=== PATIENT | male | born 1945 | race Caucasian/White ===

== ENCOUNTER 2023-06-19 15:50 | Emergency (ER) | payer MEDICARE, OTHER, SELFPAY ==
[2023-06-19 15:56] VITALS: BP 196/108
[2023-06-19 16:26] LABS: % Basophils 0.9 % (0-2); % Eosinophils 2.1 % (0-6); % Immature Granulocytes 0.4 % (0-0.5); % Lymphocytes 14.4 % (20.5-51.1); % Neutrophils 72.2 % (42.2-75.2); Absolute Basophils 0.1 10^3/uL (0-0.2); Absolute Eosinophils 0.2 10^3/uL (0-0.7); Absolute Lymphocytes 1.5 10^3/uL (1.2-3.4); Absolute Neutrophils 7.3 10^3/uL (1.4-6.5); Hematocrit 45.7 % (39.0-52.0); Hemoglobin 16.3 g/dL (13.0-18.0); Mean Corp Hgb Conc. 35.7 g/dL (33.0-37.0); Mean Corpuscular Hgb 33.7 pg (27.0-31.0); Mean Corpuscular Volume 94.4 fL (80.0-94.0); Nucleated Red Blood Cells % 0 % (-); Red Blood Cell Count 4.84 10^6/uL (4.70-6.10); Red Cell Dist. Width 13.5 % (11.5-14.5); White Blood Cell Count 10.1 10^3/uL (4.8-10.8)
[2023-06-19 16:46] LABS: Urine Albumin Trace (Neg - Trace); Urine Bilirubin Negative (Negative); Urine Character Clear (Clear); Urine Color Yellow; Urine Glucose Negative (Negative); Urine Ketone Negative (Negative); Urine Leukocyte Trace (Negative); Urine Nitrite Negative (Negative); Urine Occult Blood 4+ (Negative); Urine Urobilinogen Negative (Neg - 1+)
[2023-06-19 16:49] LABS: ALT (SGPT) 23 U/L (0-50); AST (SGOT) 32 U/L (17-59); Albumin 4.3 g/dl (3.5-5.0); Alkaline Phosphatase 136 U/L (38-126); Blood Urea Nitrogen 19 mg/dl (9-20); Calcium 9.1 mg/dl (8.4-10.2); Carbon Dioxide 26 mmol/L (22-30); Chloride 106 mmol/L (98-107); Glucose 111 mg/dl (70-99); Potassium 4.4 mmol/L (3.5-5.1); Sodium 138 mmol/L (135-145); Total Bilirubin 1.8 mg/dl (0.2-1.3); Total Protein 7.5 g/dl (6.3-8.2); eGFR > 60.00
[2023-06-19 16:57] LABS: Urine Bacteria Moderate (Negative); Urine Red Blood Cell >100 /HPF (0-2); Urine Squamous Cell 0-2 /LPF (Few); Urine White Cell 0-2 /HPF (0-5)
[2023-06-19 17:08] LABS: Mean Platelet Volume 10.6 fL (7.4-10.4); Platelet Count 281 10^3/uL (130-400)
--- NOTE | 2023-06-19 18:23 | ED.GENMED ---
History of Present Illness
General
Chief Complaint: Flank Pain
Source: patient
Exam Limitations: none
Time Seen by Provider: 06/19/23 18:02
Travel History
Have you had any contact with someone who has COVID-19?: No
Do you have any symptoms of coronavirus? Fever > 100 degrees, chills, cough, shortness of breath, sore throat, loss of taste or smell, muscle aches, or headache?: No
History of Present Illness
History of Present Illness:
This is a 77 year old male that comes in with c/o left flank pain. States that for a week he has had blood in his urine. States that he felt it was a kidney stone and that it would just pass. States that there was only a little discomfort. Today
about 3 hours ago he went from no discomfort to extreme discomfort with nausea. States that the pain is left sided and came from around the back to the side. Denies any fever, chills, chest pain, SOB, vomiting, diarrhea, headache, dizziness, urinary
burning.
Past History
Past History
ED Past Medical History: Cancer (T-cell Lymphoma), HTN, Hypercholesterolemia, Seizures, Other (bph, Renal calculus, ) and Other (Osteoarthritis and cervical disc disease)
ED Past Surgical History: Orthopedic (Cervical discectomy with fusion C4-5, C5-6, C6-7,, Right total knee replacement, Carpal tunnel), Urological (Prostate surgery) and Other (Splenectomy)
Social History
Tobacco: Former smoker
Alcohol: Daily (Beer 1)
Drug: None
Personal:
Living: with family
Family History
Family History: Negative Diabetes, Hypertension, Early CAD, Asthma or Cancer
Review of Systems
Review of Systems
All Other Systems: ROS reviewed and negative except as documented in HPI and ROS
Constitutional: Reports no symptoms; Denies fever or chills
EENT: Reports no symptoms
Respiratory: Reports no symptoms; Denies cough or trouble breathing
Cardiac: Reports no symptoms; Denies chest pain
ABD/GI: Reports nausea; Denies abdominal pain, vomiting or diarrhea
: Reports flank pain (Left sided)
Musculoskeletal: Reports no symptoms
Skin: Reports no symptoms
Neurological: Reports no symptoms; Denies dizzy or headache
Psychiatric: Reports no symptoms
Phy Exam
General Physical Exam
General Presentation: mild distress
General age: appears stated age
General Skin: warm and dry
General Habitus: elderly
General Mental: alert
General Hydration: appears well hydrated
ENT Exam
ENT Exam: TM's normal, pharynx normal and neck supple
Eye Exam
Eye Exam: EOMI
Cardiovascular Exam
Cardiovascular Exam: regular rate/rhythm and normal peripheral pulses
Pulmonary Exam
Pulmonary Exam: lungs clear, no respiratory distress, no rales, chest non tender, no crackles, no rhonchi, no wheezing and no cough
Gastrointestinal Exam
Gastrointestinal Exam: normal bowel sounds, soft, no organomegaly, no pulsatile mass, non distended, cva tenderness and tender (Very slight left sided tenderness with palpation)
Musculoskeletal Exam
Musculoskeletal Exam: full ROM
Skin Exam
Skin Exam: normal color, warm/dry, no rash and no petechia
Psychiatric Exam
Psychiatric Exam: normal mood/affect
Course
Orders/Labs/Results
Orders:
Orders
06/19/23 16:13
Complete Blood Count/With Diff Urgent
Comprehensive Metabolic Panel Urgent
06/19/23 16:20
Urinalysis Reflex To Culture Urgent
Date Specimen was Collected: 06/19/23
Time Specimen was Collected: 16:05
Urine Microscopic Reflex Cult Urgent
Urine Culture Urgent
EVELYN Source: U
Specimen Description:
Date Specimen was Collected: 06/19/23
Time Specimen was Collected: 16:05
06/19/23 18:21
CT Abd/pel Without Iv Or Oral Urgent
Comment:
Reason For Exam: Left flank pain
0.9% Sodium Chloride 1000 ml [Nss] 1,000 ml IV BOLUS
HYDROmorphone [Dilaudid] 1 mg IV NOW STA
Ondansetron Injectable [Zofran] 4 mg IV NOW STA
Abnormal Lab Results
06/19/23 06/19/23
16:13 16:20
MCV 94.4 H fL
(80.0-94.0)
MCH 33.7 H pg
(27.0-31.0)
MPV 10.6 H fL
(7.4-10.4)
Absolute Neuts (auto) 7.3 H 10^3/uL
(1.4-6.5)
Absolute Monos (auto) 1.0 H 10^3/uL
(0.1-0.6)
Lymphocytes % 14.4 L %
(20.5-51.1)
Monocytes % 10.0 H %
(1.7-9.3)
Glucose 111 H mg/dl
(70-99)
Total Bilirubin 1.8 H mg/dl
(0.2-1.3)
Alkaline Phosphatase 136 H U/L
(38-126)
Ur Occult Blood Reflex 4+ A
(Negative)
Leukocyte Esterase Rfl Trace A
(Negative)
Urine RBC >100 A /HPF
(0-2)
Urine Bacteria (Reflex) Moderate A
(Negative)
06/19/23 16:13
06/19/23 16:13
Glucose nonfasting. Total adrienne slightly elevated. Alk phos mildly elevated. Urine negative for infection.
Vital Signs
Initial and Last Documented VS:
Initial Vital Signs
Temp Pulse Resp BP Pulse Ox
98 F 72 18 196/108 99
06/19/23 15:56 06/19/23 15:56 06/19/23 15:56 06/19/23 15:56 06/19/23 15:56
Last Documented Vital Signs
Temp Pulse Resp BP Pulse Ox
98 F 72 18 196/108 99
06/19/23 15:56 06/19/23 15:56 06/19/23 15:56 06/19/23 15:56 06/19/23 15:56
MDM/Problems Addressed
Differential Diagnosis Includes:
Renal calculus
MDM/Problems Addressed:
This is a 77 year old male that comes in with c/o left flank. States that he started with blood in his urine a week ago. Then today the pain became extreme and he was nauseated.
Will get labs, CT scan and medicate for pain and give IV fluids.
Back into see patient. Patient states that he is feeling better. Explained that he has a 3mm stone in the proximal ureter. Will discharge patient home with Prescriptions sent to his pharmacy. Will have patient strain his urine and follow up with the
urologist. Patient to return with fever or any other concerns.
Chronic conditions affecting care: Other (Renal calculus)
Acute Exacerbation and/or Progression of Chronic Illness: Other (Renal calculus)
*Radiology
Radiology exam reviewed: radiology read reviewed (Obstructive uropathy secondary to a 3mm calculus in the proximal left ureter causing moderate left hydroureteronephrosis. Chronic findings, as above. )
*Pulse Oximetry
Patient hypoxic: no
*EKG
Interpreted by ED Provider?: NA
Rate: EKG- N/A
*Tamale Machine Feeder Interpretation
Rate: Tamale Machine Feeder- N/A
*Critical Care Note
Total Time (30-74mins, 75-104mins- exclusive of procedures): Not Applicable
ED Attending Note
-
Portions of this chart may have been created with voice recognition software.� Occasional wrong word or��sound alike� substitutions may have occurred due to the inherent limitations of voice recognition software.
Discharge Plan
Departure
Patient Disposition: Home (Routine Discharge)
Date of Disposition: 01/30/24
Time of Disposition: 20:41
Patient with high blood pressure during this ER visit?: Yes
Condition: Good
Covid-19: Not Applicable
Discharge Problem:
Renal calculus, left
Instructions: Renal Colic (DC), How to Strain Your Urine, BLOOD PRESSURE, Narcotic Pain Medication
Prescriptions:
New
ondansetron 4 mg tablet,disintegrating
4 mg PO Q8H PRN (Reason: nausea and vomiting) Qty: 10 0RF
oxycodone-acetaminophen [Percocet] 5-325 mg tablet
1 tab PO Q4HPRN PRN (Reason: pain) Qty: 10 0RF
tamsulosin [Flomax] 0.4 mg capsule
0.4 mg PO HS Qty: 7 0RF
No Action
tamsulosin 0.4 MG capsule
0.8 mg PO DAILY Qty: 0 0RF
aspirin 81 MG tablet,delayed release (DR/EC)
81 mg PO DAILY Qty: 0 0RF
Patient Comments:
holding pre-op 06/2014
divalproex [Depakote] 500 MG tablet,delayed release (DR/EC)
500 mg PO QPM
Lipitor:
1 tab PO QPM
Patient Comments:
pt unsure of dose
cyclobenzaprine 10 MG tablet
10 mg PO TIDPRN PRN (Reason: pain) Qty: 20 0RF
ciprofloxacin HCl 500 MG tablet
500 mg PO BID Qty: 6 0RF
Referrals:
Kingsley Bobo MD [Active] - Follow up in 5-7 days
Thad Mehta DO [Family Provider] -
Activity Restrictions/Additional Instructions:
As discussed, you have a 3mm stone in the left ureter. Please increase your water intake to 8-8oz glasses daily. Please strain your urine. You have had three prescriptions sent to your Pharmacy. The first is for Flomax that will help relax the
smooth muscle to you can pass the stone. The second is Zofran that will help with any nausea/vomiting. The last is a narcotic pain medication for sever pain. This will make you tired. Please no alcohol or driving when taking. Please eat before
taking as this can also cause nausea. If you pain is not severe you may use Tylenol 1000mg every 6 hours for pain and alternate with Ibuprofen 600mg every 6 hours with food. Follow up with the Urologist in the next 5-7 days. IF YOU HAVE ANY FEVER,
PAIN THAT IS NOT CONTROLLED OR YOU HAVE ANY OTHER CONCERNS PLEASE RETURN TO THE EMREGENCY ROOM.
Interventions
Interventions:
*Risk Screen - Suicide Last Done: 06/19/23 15:56
*General Assessment Last Done: 06/19/23 15:56
*Neglect/Abuse Screening Last Done: 06/19/23 15:56
MB-Wxgmit-Saqlzagcto Assessment Last Done: 06/19/23 18:52
ED-Male Genitourinary Assessment Last Done: 06/19/23 18:52
[2023-06-19] MEDS: NSS 1000 IV (18:36)
[2023-06-19] MEDS: ZOFRAN 4 MG IV (18:36)
[2023-06-19] MEDS: DILAUDID 1 MG IV (18:36)
[2023-06-19 20:45] VITALS: BP 166/87
[2023-06-19] MEDS: PERCOCET 5/325 1 TABLET PO (20:56)
[2023-06-19] MEDS: FLOMAX 0.400000000000000022 MG PO (20:56)
== END 2023-06-19 21:15 | disposition home or self-care (01) ==
LOC: EMR 15:50
PROVIDERS: Emergency Medicine; EMERGENCY PHYSICIAN Emergency Medicine; FAMILY PHYSICIAN Family Medicine
DX: N13.2 Hydronephrosis with renal and ureteral calculous obstruction (principal); R11.0 Nausea; I10 Essential (primary) hypertension; E78.00 Pure hypercholesterolemia, unspecified; M19.90 Unspecified osteoarthritis, unspecified site; M50.90 Cervical disc disorder, unspecified, unspecified cervical region; R56.9 Unspecified convulsions; Z79.82 Long term (current) use of aspirin; Z96.651 Presence of right artificial knee joint; Z87.891 Personal history of nicotine dependence; Z87.442 Personal history of urinary calculi; Z85.72 Personal history of non-Hodgkin lymphomas; M43.22 Fusion of spine, cervical region; Z90.81 Acquired absence of spleen
CPT/HCPCS: 99284; 96374; 96375; 96361; 74176; 80053; 81003; 81015; 85025; 87086

== ENCOUNTER → 2023-07-26 15:48 | Outpatient (REF) | payer MEDICARE, OTHER, SELFPAY | LOC: HWRAD 15:48 | PROVIDERS: ATTENDING PHYSICIAN Specialist; FAMILY PHYSICIAN Family Medicine | DX: N20.1 Calculus of ureter (principal) | CPT/HCPCS: 74176 ==

== ENCOUNTER 2023-08-03 06:18 | Day surgery (SDC) | payer MEDICARE, SELFPAY ==
[2023-07-31 13:11] VITALS: BMI 33.9
[2023-08-03] VITALS (8 sets, daily range): BP systolic 111–154; BP diastolic 63–90; BMI 33.9
[2023-08-03] MEDS: NORMOSOL-R 1000 IV (09:52)
[2023-08-03] MEDS: Pyridium 200 MG PO (13:36)
[2023-08-08 19:16] LABS: Stone Analysis Mass 646 mg
[2023-08-09 10:37] LABS: Stone Analysis Mass 5 mg
== END 2023-08-03 14:41 | disposition home or self-care (01) ==
LOC: SDS 06:18
PROVIDERS: ATTENDING PHYSICIAN Specialist
DX: N20.1 Calculus of ureter (principal); Q62.5 Duplication of ureter; N42.0 Calculus of prostate
CPT/HCPCS: 52356; 74018; 76000; 82365; C1894; C2617

== ENCOUNTER → 2024-09-29 15:15 | Outpatient (REF) | payer MEDICARE, OTHER, SELFPAY | LOC: RAD 15:15 | PROVIDERS: ATTENDING PHYSICIAN Family Medicine | DX: R17 Unspecified jaundice (principal); R97.20 Elevated prostate specific antigen [PSA] | CPT/HCPCS: 74177; Q9967 ==

== ENCOUNTER → 2024-11-28 12:48 | Outpatient (REF) | payer MEDICARE, OTHER, SELFPAY | LOC: RAD 12:48 | PROVIDERS: ATTENDING PHYSICIAN Specialist; FAMILY PHYSICIAN Family Medicine | DX: N20.0 Calculus of kidney (principal) | CPT/HCPCS: 74018 ==

== ENCOUNTER → 2025-01-21 10:51 | Outpatient (REF) | payer MEDICARE, OTHER, SELFPAY | LOC: RCS 10:51 | PROVIDERS: ATTENDING PHYSICIAN Orthopaedic Surgery Sports Medicine; FAMILY PHYSICIAN Family Medicine | DX: M17.12 Unilateral primary osteoarthritis, left knee (principal); Z01.818 Encounter for other preprocedural examination; R73.09 Other abnormal glucose; R79.1 Abnormal coagulation profile | CPT/HCPCS: 93005 ==

== ENCOUNTER 2025-02-13 13:40 | Outpatient (RCR) | payer MEDICARE, OTHER, SELFPAY | END 2025-02-13 23:59 | disposition home or self-care (01) | LOC: RPT 13:40 | PROVIDERS: ATTENDING PHYSICIAN Orthopaedic Surgery Sports Medicine; FAMILY PHYSICIAN Family Medicine | DX: M17.12 Unilateral primary osteoarthritis, left knee (principal); M25.562 Pain in left knee; Z73.6 Limitation of activities due to disability; R26.89 Other abnormalities of gait and mobility; G89.29 Other chronic pain | CPT/HCPCS: 97110; 97161; 97530; 97535 ==

== ENCOUNTER 2025-03-19 12:05 | Outpatient (RCR) | payer MEDICARE, OTHER, SELFPAY | END 2025-03-19 23:59 | disposition home or self-care (01) | LOC: RPT 12:05 | PROVIDERS: ATTENDING PHYSICIAN Orthopaedic Surgery Sports Medicine; FAMILY PHYSICIAN Family Medicine | DX: Z47.1 Aftercare following joint replacement surgery (principal); Z73.6 Limitation of activities due to disability; M25.562 Pain in left knee; R26.2 Difficulty in walking, not elsewhere classified; M62.81 Muscle weakness (generalized); R26.89 Other abnormalities of gait and mobility; Z96.652 Presence of left artificial knee joint | CPT/HCPCS: 97010; 97110; 97140; 97162 ==

== ENCOUNTER → 2025-03-31 16:51 | Outpatient (REF) | payer MEDICARE, OTHER, SELFPAY | LOC: RAD 16:51 | PROVIDERS: ATTENDING PHYSICIAN Orthopaedic Surgery Sports Medicine; FAMILY PHYSICIAN Family Medicine | DX: M24.662 Ankylosis, left knee (principal); Z96.652 Presence of left artificial knee joint; Z47.1 Aftercare following joint replacement surgery; R22.41 Localized swelling, mass and lump, right lower limb | CPT/HCPCS: 93971 ==

== ENCOUNTER 2025-04-01 08:34 | Outpatient (RCR) | payer MEDICARE, OTHER, SELFPAY | END 2025-04-01 23:59 | disposition home or self-care (01) | LOC: RPT 08:34 | PROVIDERS: ATTENDING PHYSICIAN Orthopaedic Surgery Sports Medicine; FAMILY PHYSICIAN Family Medicine | DX: Z47.1 Aftercare following joint replacement surgery (principal); Z73.6 Limitation of activities due to disability; M25.562 Pain in left knee; R26.2 Difficulty in walking, not elsewhere classified; M62.81 Muscle weakness (generalized); Z96.652 Presence of left artificial knee joint; R26.89 Other abnormalities of gait and mobility | CPT/HCPCS: 97010; 97110; 97140 ==

== ENCOUNTER 2025-04-05 18:58 | Inpatient (IN) | payer MEDICARE, OTHER, SELFPAY ==
[2025-04-05 14:15] VITALS: BP 129/76; BMI 29.2
[2025-04-05 14:39] LABS: Hematocrit 27.0 % (39.0-52.0); Hemoglobin 9.0 g/dL (13.0-18.0); Mean Corp Hgb Conc. 33.3 g/dL (33.0-37.0); Mean Corpuscular Volume 96.8 fL (80.0-94.0); Nucleated Red Blood Cells % 0 % (-); Platelet Count 351 10^3/uL (130-400); Red Cell Dist. Width 14.6 % (11.5-14.5)
[2025-04-05 15:04] LABS: ALT (SGPT) 14 U/L (0-50); AST (SGOT) 22 U/L (17-59); Albumin 2.9 g/dl (3.5-5.0); Alkaline Phosphatase 122 U/L (38-126); Blood Urea Nitrogen 16 mg/dl (9-20); Calcium 7.9 mg/dl (8.4-10.2); Carbon Dioxide 25 mmol/L (22-30); Chloride 103 mmol/L (98-107); Estimated Creatinine Clearance 106 ml/min; Glucose 118 mg/dl (70-99); Potassium 3.9 mmol/L (3.5-5.1); Sodium 131 mmol/L (135-145); Total Protein 5.9 g/dl (6.3-8.2); eGFR > 60.00
--- NOTE | 2025-04-05 15:14 | ED.GENMED ---
History of Present Illness
<Vani Han COMMISSIONED SECURITY OFFICER - Last Filed: 04/05/25 19:38>
General
Chief Complaint: Male Genito-Urinary Symptoms
Source: patient and family
Exam Limitations: none
Time Seen by Provider: 04/05/25 14:44
Nursing documentation reviewed up to this point in time: agreed with
History of Present Illness
History of Present Illness:
79 yo male w h/o CVA, HTN, HLD, afib on Eliquis, L knee replacement on 02/19/25 presents for severe pain and swelling left knee and thigh. Also noted blood in his urine today.
The patient presents with extreme pain in his leg following a knee manipulation procedure. He had a knee replacement on February 19. The manipulation was suggested by his doctor as the knee bending was not progressing well. He mentioned the
manipulation was done under anesthesia, but he did not discontinue the apixaban. The manipulation was performed this past Sunday (2 days ago) by Dr. Juan Carlos Carlos. The patient did not receive a nerve block because of the continuation of apixaban. He
reports increased swelling and tenderness of the knee, with the pain rated as 6 to 7 out of 10 when not moving; 10/10 with movement. The incision from the surgery opened slightly during the manipulation, requiring 2 additional stitches. The patient
changed his bandage yesterday.
Has been on Keflex 500 mg QID past 10 days
Past History
<Vani Han, COMMISSIONED SECURITY OFFICER - Last Filed: 04/05/25 19:38>
Past History
ED Past Medical History: Cancer (T-cell Lymphoma), HTN, Hypercholesterolemia, Seizures, Other (bph, Renal calculus, ) and Other (Osteoarthritis and cervical disc disease)
ED Past Surgical History: Orthopedic (Cervical discectomy with fusion C4-5, C5-6, C6-7,, Right total knee replacement, Carpal tunnel), Urological (Prostate surgery) and Other (Splenectomy)
Social History
Tobacco: Former smoker
Alcohol: Daily (Beer 1)
Drug: None
Personal:
Living: with family
Family History
Family History: Negative Diabetes, Hypertension, Early CAD, Asthma or Cancer
Review of Systems
<Vani Han, COMMISSIONED SECURITY OFFICER - Last Filed: 04/05/25 19:38>
Review of Systems
Allergies reviewed?: Yes
All Other Systems: ROS reviewed and negative except as documented in HPI and ROS
Constitutional: Denies fever or chills
Respiratory: Denies trouble breathing
Cardiac: Denies chest pain
ABD/GI: Denies abdominal pain, nausea or vomiting
: Reports bleeding (in urine noted today); Denies difficulty voiding
Musculoskeletal: Reports other (Swelling, pain, bruising left knee and thigh post knee replacement on 02/19 and postmanipulation of the joint 2 days ago)
Skin: Reports other (Vertical incision left knee healing well, 2 sutures intact.)
Phy Exam
<Vani Han, COMMISSIONED SECURITY OFFICER - Last Filed: 04/05/25 19:38>
Physical Exam
Physical Exam:
GENERAL: No acute distress. A&Ox3.
CONSTITUTIONAL: Afebrile.
EYES: clear, conjunctivae normal
ENMT: moist mucus membranes, Pharynx nl
RESPIRATORY: Regular respirations, nonlabored, lungs clear.
CARDIOVASCULAR: Regular rate and rhythm, no murmurs, no rubs. Right foot dorsalis pedis pulse 2/4, R foot DP pulse 1/4. Left foot warm, pink. No significant swelling of ankle or foot
GI: Soft, nontender, normal BS
MUSCULOSKELETAL: Left lower extremity is moderately swollen about the knee and thigh with significant tenderness and ecchymosis. Unable to move the leg due to significant pain.
SKIN: Warm, dry, pink
PSYCH: Normal mood and affect. Well kept, interactive and appropriate
NEUROLOGIC: Awake, alert and oriented. No focal neurological deficits
Course
<Vani Han, COMMISSIONED SECURITY OFFICER - Last Filed: 04/05/25 19:38>
Orders/Labs/Results
Orders:
Orders
04/05/25 14:33
Complete Blood Count/With Diff Urgent
Comprehensive Metabolic Panel Urgent
04/05/25 Dinner
Regular
At Your Request: Full Participation
04/05/25 15:09
HYDROmorphone [Dilaudid] 1 mg IV NOW STA
04/05/25 15:33
US Periph Venous LOWER Ext LT Urgent
Comment:
Reason For Exam: large hematoma on Eliquis,
04/05/25 17:40
Admit/Transfer Patient As Directed
Co-Sign Provider:
Level of Care: Inpatient admission
Assign to:: Telemetry
Physician / Group: Hospitalist; Dr. Krishnamurthy
Diagnosis: Acute blood loss anemia secondary to hematoma
Reason for Telemetry: Other
Other Reason for Telemetry: Anemia
Date to Stop Telemetry: 04/07/25
Time to Stop Telemetry: 11:00
Reason for Hospitalization: Acute blood loss anemia secondary to hematoma
Expected length of stay greater than two midnights?: Yes
ELOS- Estimated Length of Stay in days: 3
I certify the patient meets the requirements for IP care: Yes
PRN Pain Medication Management As Directed
May give lesser potent ordered pain med per pt: Yes
preference::
Protocol:: Medication orders for pain may be administered in a
manner that supports deferring to patient preference
when the pt is:
- Requesting an ordered lesser potent pain medication.
Least to most potent pain medications are defined
as: acetaminophen < NSAID < tramadol < opioids
(morphine, oxycodone, hydromorphone).
- Requesting a lesser dose of the same medication IF
ORDERED.
- Requesting a less intrusive route of administration
if both routes are prescribed by the provider (PO <
IV).
11/16/25 17:42
Code Status As Directed
Resuscitation Status: Full Code
04/05/25 18:05
INFECTIOUS DISEASE CONSULT Routine
Consulting Provider: Milady King
Specimen Description:
Was physician already notified: Yes
ORTHOPEDIC CONSULT Routine
Consulting Provider: Akash Ponce
Was physician already notified: Yes
04/05/25 18:17
CARDIOLOGY CONSULT Routine
Consulting Provider: Sreekanth Mistry
Was physician already notified: Yes
OT Consult [Ot Eval And Treat] Routine
PT Consult [Pt Eval And Treat] Routine
Activity Level: As Tolerated
04/05/25 19:03
Amlodipine [Norvasc] 2.5 mg PO QPM
Bisacodyl [Dulcolax] 10 mg RECTAL [id number] PRN
Docusate W/Senna [Senokot-S] 1 tablet PO BIDPRN PRN
HYDROmorphone [Dilaudid] 0.5 mg IV Q4HPRN PRN
Polyethylene Glycol Powder [Miralax] 17 grams PO DAILYPRN PRN
Vancomycin [Vancocin] 2,000 mg 0.9% Sodium Chloride 500 ml [Nss] 500 ml IV NOW
04/05/25 19:03
Activity As Directed
Activity Level: As Tolerated
Pneumatic Compression Sleeves As Directed
Type: Knee high
Comment: ONLY ON RIGHT LEG; DO NOT PUT ON LEFT LEG
Vascular Checks As Directed
Location: Left leg
Vital Signs As Directed
Frequency: Per unit guidelines
DX Deep Vein Thrombosis Video Routine
04/05/25 20:03
Blood Culture Q30M
EVELYN Source: Blood/Venous
Specimen Description:
Comment: Obtain prior to starting antibiotics
04/05/25 22:00
Urinalysis Reflex To Culture Urgent
Date Specimen was Collected: 04/05/25
Time Specimen was Collected: 17:02
04/06/25 08:00
Atorvastatin [Lipitor] 10 mg PO DAILY
04/07/25 11:00
DC Protocol for Telemetry ONCE
Abnormal Lab Results
04/05/25
14:33
WBC 14.0 H 10^3/uL
(4.8-10.8)
RBC 2.79 L 10^6/uL
(4.70-6.10)
Hgb 9.0 L g/dL
(13.0-18.0)
Hct 27.0 L %
(39.0-52.0)
MCV 96.8 H fL
(80.0-94.0)
MCH 32.3 H pg
(27.0-31.0)
RDW 14.6 H %
(11.5-14.5)
Abs Immat Gran (auto) 0.1 H 10^3/uL
(0-0.05)
Absolute Neuts (auto) 11.1 H 10^3/uL
(1.4-6.5)
Absolute Lymphs (auto) 1.0 L 10^3/uL
(1.2-3.4)
Absolute Monos (auto) 1.7 H 10^3/uL
(0.1-0.6)
Neutrophils % 79.0 H %
(42.2-75.2)
Lymphocytes % 7.0 L %
(20.5-51.1)
Monocytes % 12.3 H %
(1.7-9.3)
Sodium 131 L mmol/L
(135-145)
Creatinine 0.6 L mg/dL
(0.7-1.3)
Glucose 118 H mg/dl
(70-99)
Calcium 7.9 L mg/dl
(8.4-10.2)
Total Bilirubin 2.8 H mg/dl
(0.2-1.3)
Total Protein 5.9 L g/dl
(6.3-8.2)
Albumin 2.9 L g/dl
(3.5-5.0)
04/05/25 14:33
04/05/25 14:33
Vital Signs
Initial and Last Documented VS:
Initial Vital Signs
Temp Pulse Resp BP Pulse Ox
100.3 F 101 18 129/76 95
04/05/25 14:15 04/05/25 14:15 04/05/25 14:15 04/05/25 14:15 04/05/25 14:15
Last Documented Vital Signs
Temp Pulse Resp BP Pulse Ox
100.3 F 100 18 132/75 95
04/05/25 23:23 04/05/25 23:23 04/05/25 23:23 04/05/25 23:23 04/05/25 23:23
Property Field Inspector consulted with Physician
Property Field Inspector consulted with physician?: Yes
Name of Physician Consulted: Naga
<Darwin Nielson, DO - Last Filed: 04/05/25 23:26>
Orders/Labs/Results
Orders:
Orders
04/05/25 14:33
Complete Blood Count/With Diff Urgent
Comprehensive Metabolic Panel Urgent
04/05/25 Dinner
Regular
At Your Request: Full Participation
04/05/25 15:09
HYDROmorphone [Dilaudid] 1 mg IV NOW STA
04/05/25 15:33
US Periph Venous LOWER Ext LT Urgent
Comment:
Reason For Exam: large hematoma on Eliquis,
04/05/25 17:40
Admit/Transfer Patient As Directed
Co-Sign Provider:
Level of Care: Inpatient admission
Assign to:: Telemetry
Physician / Group: Hospitalist; Dr. Krishnamurthy
Diagnosis: Acute blood loss anemia secondary to hematoma
Reason for Telemetry: Other
Other Reason for Telemetry: Anemia
Date to Stop Telemetry: 04/07/25
Time to Stop Telemetry: 11:00
Reason for Hospitalization: Acute blood loss anemia secondary to hematoma
Expected length of stay greater than two midnights?: Yes
ELOS- Estimated Length of Stay in days: 3
I certify the patient meets the requirements for IP care: Yes
PRN Pain Medication Management As Directed
May give lesser potent ordered pain med per pt: Yes
preference::
Protocol:: Medication orders for pain may be administered in a
manner that supports deferring to patient preference
when the pt is:
- Requesting an ordered lesser potent pain medication.
Least to most potent pain medications are defined
as: acetaminophen < NSAID < tramadol < opioids
(morphine, oxycodone, hydromorphone).
- Requesting a lesser dose of the same medication IF
ORDERED.
- Requesting a less intrusive route of administration
if both routes are prescribed by the provider (PO <
IV).
04/05/25 17:42
Code Status As Directed
Resuscitation Status: Full Code
04/05/25 18:05
INFECTIOUS DISEASE CONSULT Routine
Consulting Provider: Milady King
Specimen Description:
Was physician already notified: Yes
ORTHOPEDIC CONSULT Routine
Consulting Provider: Akash Ponce
Was physician already notified: Yes
04/05/25 18:17
CARDIOLOGY CONSULT Routine
Consulting Provider: Sreekanth Mistry
Was physician already notified: Yes
OT Consult [Ot Eval And Treat] Routine
PT Consult [Pt Eval And Treat] Routine
Activity Level: As Tolerated
04/05/25 19:03
Amlodipine [Norvasc] 2.5 mg PO QPM
Bisacodyl [Dulcolax] 10 mg RECTAL [id number] PRN
Docusate W/Senna [Senokot-S] 1 tablet PO BIDPRN PRN
HYDROmorphone [Dilaudid] 0.5 mg IV Q4HPRN PRN
Polyethylene Glycol Powder [Miralax] 17 grams PO DAILYPRN PRN
Vancomycin [Vancocin] 2,000 mg 0.9% Sodium Chloride 500 ml [Nss] 500 ml IV NOW
04/05/25 19:03
Activity As Directed
Activity Level: As Tolerated
Pneumatic Compression Sleeves As Directed
Type: Knee high
Comment: ONLY ON RIGHT LEG; DO NOT PUT ON LEFT LEG
Vascular Checks As Directed
Location: Left leg
Vital Signs As Directed
Frequency: Per unit guidelines
DX Deep Vein Thrombosis Video Routine
04/05/25 20:03
Blood Culture Q30M
EVELYN Source: Blood/Venous
Specimen Description:
Comment: Obtain prior to starting antibiotics
04/05/25 22:00
Urinalysis Reflex To Culture Urgent
Date Specimen was Collected: 04/05/25
Time Specimen was Collected: 17:02
04/06/25 08:00
Atorvastatin [Lipitor] 10 mg PO DAILY
04/07/25 11:00
DC Protocol for Telemetry ONCE
Abnormal Lab Results
04/05/25
14:33
WBC 14.0 H 10^3/uL
(4.8-10.8)
RBC 2.79 L 10^6/uL
(4.70-6.10)
Hgb 9.0 L g/dL
(13.0-18.0)
Hct 27.0 L %
(39.0-52.0)
MCV 96.8 H fL
(80.0-94.0)
MCH 32.3 H pg
(27.0-31.0)
RDW 14.6 H %
(11.5-14.5)
Abs Immat Gran (auto) 0.1 H 10^3/uL
(0-0.05)
Absolute Neuts (auto) 11.1 H 10^3/uL
(1.4-6.5)
Absolute Lymphs (auto) 1.0 L 10^3/uL
(1.2-3.4)
Absolute Monos (auto) 1.7 H 10^3/uL
(0.1-0.6)
Neutrophils % 79.0 H %
(42.2-75.2)
Lymphocytes % 7.0 L %
(20.5-51.1)
Monocytes % 12.3 H %
(1.7-9.3)
Sodium 131 L mmol/L
(135-145)
Creatinine 0.6 L mg/dL
(0.7-1.3)
Glucose 118 H mg/dl
(70-99)
Calcium 7.9 L mg/dl
(8.4-10.2)
Total Bilirubin 2.8 H mg/dl
(0.2-1.3)
Total Protein 5.9 L g/dl
(6.3-8.2)
Albumin 2.9 L g/dl
(3.5-5.0)
04/05/25 14:33
04/05/25 14:33
Vital Signs
Initial and Last Documented VS:
Initial Vital Signs
Temp Pulse Resp BP Pulse Ox
100.3 F 101 18 129/76 95
04/05/25 14:15 04/05/25 14:15 04/05/25 14:15 04/05/25 14:15 04/05/25 14:15
Last Documented Vital Signs
Temp Pulse Resp BP Pulse Ox
100.3 F 100 18 132/75 95
04/05/25 23:23 04/05/25 23:23 04/05/25 23:23 04/05/25 23:23 04/05/25 23:23
<Vani Han NP - Last Filed: 04/05/25 19:38>
MDM/Problems Addressed
Differential Diagnosis Includes:
Hematoma, cellulitis, hemarthrosis, compartment syndrome
MDM/Problems Addressed:
79 yo male w h/o CVA, HTN, HLD, afib on Eliquis, L knee replacement on 02/19/25 presents for severe pain and swelling left knee and thigh. Also noted blood in urine today
The patient presents with extreme pain in his leg following a knee manipulation procedure. He had a knee replacement on February 19. The manipulation was suggested by his doctor as the knee bending was not progressing well. He mentioned the
manipulation was done under anesthesia, but he did not discontinue the apixaban. The manipulation was performed this past Sunday (2 days ago) by Dr. Juan Carlos Carlos. The patient did not receive a nerve block because of the continuation of apixaban. He
reports increased swelling and tenderness of the knee, with the pain rated as 6 to 7 out of 10 when not moving; 10/10 with movement. The incision from the surgery opened slightly during the manipulation, requiring 2 additional stitches. The patient
changed his bandage yesterday.
Has been on Keflex 500 mg QID past 10 days
Afebrile, no compartment syndrome
CBC: WBC 14.0 Hgb 9.0
CMP : Unremarkable. Corrected Ca++ 8.4.
4:00 p[address] orth[address] Ponce who states there is nothing to do from his standpoint. Needs ice, compression, analgesics and call Dr. Trevino in a.m. (Sunday)
Pt cannot be discharged due to significant pain, risk of compartment syndrome.
4:45 PM:
Patient is much more comfortable after pain medication
Ultrasound complete, official results pending
Hospitalist notified of admission
US radiology report: IMPRESSION: No evidence of deep venous thrombosis of the left lower extremity.
Complex cystic lesion without blood flow within in the soft tissues of the left thigh measuring 7.5 cm in greatest dimension most likely representing a hematoma. Follow-up imaging could be obtained to confirm complete resolution.
Complex 6.5 cm cystic lesion in the left popliteal fossa without blood flow within most likely representing a popliteal/Hubbard's cyst. Hematoma cannot be differentiated. Follow-up imaging could be obtained.
<Vani Han COMMISSIONED SECURITY OFFICER - Last Filed: 04/05/25 19:38>
*Pulse Oximetry
SaO2: 95
Oxygen Mode of Delivery: Room air
Patient hypoxic: no
*Critical Care Note
Total Time (30-74mins, 75-104mins- exclusive of procedures): Not Applicable
ED Attending Note
<Vani Han COMMISSIONED SECURITY OFFICER - Last Filed: 04/05/25 19:38>
-
Portions of this chart may have been created with voice recognition software.� Occasional wrong word or��sound alike� substitutions may have occurred due to the inherent limitations of voice recognition software.
<Darwin Nielson DO - Last Filed: 04/05/25 23:26>
ED Attending Note
Patient seen and examined by attending physician: Yes
ED Attending Note:
I have reviewed and agree with history treatment plan by Zoraida han DNP. My exam revealed hematoma left knee normal pulses. Patient unable to ambulate. Admit to hospitalist for further monitoring. Orthopedics notified
Discharge Plan
Departure
Patient Disposition: Admit
Date of Disposition: 04/05/25
Time of Disposition: 16:47
Admit to: Med/Surg
Presentation/result/management discussed w/ accepting MD/DO: Hospitalist
Condition: Fair
Discharge Problem:
Hematoma of left knee region
Interventions
Interventions:
*Risk Screen - Suicide Last Done: 04/05/25 14:15
*General Assessment Last Done: 04/05/25 14:15
*Neglect/Abuse Screening Last Done: 04/05/25 14:15
*ED- Fall Risk Assessment Last Done: 04/05/25 14:15
*ED COVID-19 Vaccine History Last Done: 04/05/25 14:15
*ED Influenza Vaccine History Last Done: 04/05/25 14:15
*Nursing Disposition Last Done: 04/05/25 18:15
ED-Male Genitourinary Assessment Last Done: 04/05/25 16:58
Discharge Date and Time
Discharge Date/Time: 04/05/25 18:16
[2025-04-05] MEDS: DILAUDID 1 MG IV (15:21)
--- NOTE | 2025-04-05 17:45 | HPS.HSE ---
Family Physician
-
Family Physician: Thad Mehta
Chief Complaint
-
Left lower extremity swelling and pain
History of Present Illness
Patient is a pleasant 79 years old with history of CVA, hypertension, hyperlipidemia, recent diagnosis of A-fib on Eliquis, left knee replacement on February, who had manipulation under anesthesia 2 days ago.
Patient presented to the ER with severe pain and swelling in the left knee and thigh.
Ultrasound done in the ER shows hematoma but no DVT.
Patient noted to have leukocytosis and low-grade fever.
Patient seen and examined at bedside, family at bedside denies any chest pain or shortness of breath, no abdominal pain, no nausea, no vomiting, no diarrhea or constipation.
Medical History
Past Medical History
Past Medical History: Reports Other
Additional Past Medical History:
Cancer (T-cell Lymphoma), HTN, Hypercholesterolemia, Seizures, Other (bph, Renal calculus, ) and Other (Osteoarthritis and cervical disc disease)
Past Surgical History: Reports Other
Additional Past Surgical History:
Orthopedic (Cervical discectomy with fusion C4-5, C5-6, C6-7,, Right total knee replacement, Carpal tunnel), Urological (Prostate surgery) and Other (Splenectomy)
Social History
Tobacco: Former Smoker
Alcohol: Daily (1 beer)
Drug: None
Personal:
Living: With Family
Employment: Retired
Family History
Family History: Not pertinent
Allergies / Home Medications
Allergies reflects when Allergies were last updated in [facility].
Home Medications with original date entered in [facility]
Allergy/Medication List:
Allergies
Allergy/AdvReac Type Severity Reaction Status Date / Time
No Known Allergies Allergy Verified 04/05/25 14:23
Home Medications
PreserVision AREDS 1 tab PO BID 08/01/23
amlodipine 2.5 mg tablet 2.5 mg PO QPM 08/01/23
atorvastatin 10 mg tablet 10 mg PO DAILY 08/01/23
apixaban 5 mg tablet (Eliquis) 5 mg PO BID 04/05/25
docusate sodium 50 mg capsule 50 mg PO DAILY 04/05/25
oxycodone 5 mg tablet 5 mg PO Q6H PRN pain 04/05/25
polyethylene glycol 3350 17 gram oral powder packet (Miralax) 17 g PO DAILY 04/05/25
Review of Systems
-
A 12 point ROS was completed and negative except as noted: Yes
Constitutional: Reports Fatigue; Denies Fever, Weight Gain, Weight Loss or Sleep Disturbance
EENT: Denies Tearing, Sore Throat, Mouth Pain, Mouth Swelling or Runny Nose
Respiratory: Denies Cough, Hemoptysis or Trouble Breathing
Cardiac: Denies Chest Pain, Diaphoresis, Palpitations or Syncope
Abdomen/GI: Denies Abdominal Pain, Nausea, Vomiting, Diarrhea, Constipated, Bloody Stools or Black Stools
: Denies Dysuria, Frequency, Flank Pain, Incontinence, Difficulty Voiding, Urgency, Bleeding or Dark Urine
Musculoskeletal: Reports Joint Pain, Joint Swelling, Muscle Pain, Muscle Stiffness and Edema
Skin: Denies Itching or Rash
Neurological: Denies Dizzy, Headache, Weakness or Numbness
Endocrine: Denies Polyuria, Polydipsia or Temp Intolerance
Hematologic/Lymphatic: Reports Bruising; Denies Bleeding or Swollen Glands
Psych: Reports Calm; Denies Depression, Anxiety or Panic Disorder
Physical Exam
Vital Signs
Vital Signs
Temp Pulse Resp BP Pulse Ox
100.3 F 101 18 129/76 95
04/05/25 14:15 04/05/25 14:15 04/05/25 14:15 04/05/25 14:15 04/05/25 15:15
Physical Exam
General: Well Developed, Well Nourished, No Apparent Distress, Comfortable and Good Appetite; No Pain, Chills or Sweats
HEENT: NormoCephalic, Moist mucous membranes, Atraumatic, Good Dentition, PERRLA, Nose Appears Normal and Ears Appear Normal
Respiratory: Clear
Cardiac: S1/S2 and Irregular Rhythm
Breast: Deferred by me
GI: Soft, Non Tender, Non Distended and Normal Bowel Sounds
Genito-urinary: Deferred by me
Musculoskeletal: No Clubbing, No Cyanosis and Edema, Left Lower Extremity
Skin: Warm; No Rash, Jaundice, Ulcers, Lesions or Decubitus Ulcers
Neuro: Awake, Alert, Oriented, AO x 3, No Motor Deficits, Nonfocal/grossly intact and Cranial Nerves Intact
Hematologic/Lymphatic: No Lymphadenopathy
Psych: Calm
Laboratory Results
-
04/05/25 14:33
04/05/25 14:33
Laboratory Results
Total Bilirubin 2.8 mg/dl (0.2-1.3) H 04/05/25 14:33
AST 22 U/L (17-59) 04/05/25 14:33
ALT 14 U/L (0-50) 04/05/25 14:33
Alkaline Phosphatase 122 U/L (38-126) 04/05/25 14:33
Data Reviewed
-
Diagnostic Radiology: Report Reviewed by me
CT Scan: Report Reviewed by me
Medical Tests (Nuc Med, Echo, EKG etc): Report Reviewed by me
Lab Data: Labs Reviewed by me
Old Records: Reviewed
Impression/Plan
-
Impression:
Patient is a pleasant 79 years old with history of CVA, hypertension, hyperlipidemia, recent diagnosis of A-fib on Eliquis, left knee replacement on February, who had manipulation under anesthesia 2 days ago.
Patient presented to the ER with severe pain and swelling in the left knee and thigh.
Ultrasound done in the ER shows hematoma but no DVT.
Patient noted to have leukocytosis and low-grade fever.
Assessment/plan:
Left thigh hematoma.
History of recent knee replacement on February 19 and manipulation under anesthesia 2 days ago.
Presented with worsening edema and swelling/pain.
Ultrasound left lower extremity showed:
No evidence of deep venous thrombosis of the left lower extremity.
Complex cystic lesion without blood flow within in the soft tissues of the left thigh measuring 7.5 cm in greatest dimension most likely representing a hematoma. Follow-up imaging could be obtained to confirm complete resolution.
Complex 6.5 cm cystic lesion in the left popliteal fossa without blood flow within most likely representing a popliteal/Hubbard's cyst. Hematoma cannot be differentiated. Follow-up imaging could be obtained.
Hold Eliquis.
Orthopedic consult.
Watch for compartment syndrome.
Frequent vascular checks
Pain control
PT/OT consult.
Concern of infected hematoma.
Start vancomycin and cefepime.
Patient with leukocytosis and low-grade fever.
Infectious disease consult.
Blood culture
Permanent A-fib
Currently with A-fib but rate controlled.
Eliquis on hold. to resume Eliquis if cleared by orthopedic
Cardiology consult.
Patient with history of CVA May consider heparin bridging if cleared by orthopedic
History of hypertension.
Continue midodrine.
Hyperlipidemia.
Continue atorvastatin
CODE STATUS: Full code
DVT prophylaxis: SCDs
Diet: Regular diet
Family communication: Discussed with and 2 daughters at bedside
Disposition: Admit under hospitalist, start IV antibiotics, hold Eliquis.
Total time spent on today's encounter was 75 minutes which included time spent in counseling the patient/family regarding diagnosis and treatment plan as listed above, goals of care, and symptom management. Case was discussed with nursing staff,
specialists, and care coordinators/case management. All labs and imaging personally reviewed by me. Remainder the time spent in detailed review of previous records, lab data, imaging, and other medical provider documentation.
[2025-04-05 19:03] VITALS: BP 125/73; BMI 27.7
--- NOTE | 2025-04-05 20:18 | PHA.VAN.IN ---
Assessment
- Assessment
Renal Function: Appears similar to baseline
Maximum Temperature: 100.3F
Concomitant Antimicrobials: Cefepime
AUC Dosing Plan
- Dosing Variables
Dosing Weight (kg): 92
Dosing CrCl (ml/min): 110
Vd coefficient (L/kg): 0.7
- Empiric Dosing
Initial / Loading Dose: Vancomcyin 2000mg- administered 04/05 at 2030
Maintenance Regimen: Vancomcyin 1250mg IV Q12h to start 04/06 at 0600
Estimated AUC (mcg*h/mL): 435
Estimated Peak (mcg*h/mL): 28.4
Estimated Trough (mcg/ml): 10.4
Estimated Half Life (H): 7.2
- Monitoring
No levels ordered at this time: Consider levels within the next few days.
Pharmacokinetics Vancomycin I
- -
Patient Age: 79
Patient Sex: Male
Vancomycin Day #: 1
Indication: Bone And Joint
Requesting Provider: Dr. Krishnamurthy
Pertinent Antimicrobial Allergies:
NKA
Height / Weight:
Height 6 ft
Actual Weight 92.397 kg
Pertinent Past Medical History: Lf knee replacement 02/19/25
- Vital Signs / Lab Results
Temp Pulse Resp BP Pulse Ox
99.7 F 101 18 125/73 97
04/05/25 19:03 04/05/25 19:03 04/05/25 19:03 04/05/25 19:03 04/05/25 19:03
Lab Results - Hematology
04/05/25
14:33
WBC 14.0 H
Lab Results - Chemistry
04/05/25
14:33
BUN 16
Creatinine 0.6 L
Estimated Creat Clear 106
Albumin 2.9 L
[2025-04-05] MEDS: MAXIPIME 1000 MG IV (20:27)
[2025-04-05] MEDS: STERILE WATER FOR INJECTION 10 ML IV (20:27)
[2025-04-05] MEDS: VANCOCIN 540 MG IV (20:31)
[2025-04-05] MEDS: NORVASC 2.5 MG PO (20:31)
[2025-04-05] MEDS: FLUSH (NSS) 1 FLUSH IV (20:34)
--- NOTE | 2025-04-05 20:48 | W.PN.UPDATE ---
Update Note
Progress Note Update
Patient seen and examined at bedside. Had long discussion with both patient and his family members.
79-year-old male now several days status post left total knee arthroplasty manipulation with what looks to be development of hematoma in the setting of Eliquis use. I do not think there is much to do from an orthopedic standpoint acutely. Would
recommend ice, elevation, pain control. Would likely recommend holding Eliquis for the time being unless otherwise medically contraindicated. Would recommend mobilization with physical therapy. Will reach out to patient's surgeon to update him as
to the patient's admission.
Formal consult note to follow.
Please reach out any questions or concerns
[2025-04-05 23:23] VITALS: BP 132/75
[2025-04-06] VITALS (7 sets, daily range): BP systolic 112–130; BP diastolic 65–81; O2SAT 98
[2025-04-06] MEDS: STERILE WATER FOR INJECTION 10 ML IV ×2 (02:06→08:12)
[2025-04-06] MEDS: MAXIPIME 1000 MG IV ×2 (02:07→08:12)
[2025-04-06] MEDS: TYLENOL 650 MG PO ×3 (02:07→20:42)
[2025-04-06 02:25] LABS: Urine Character Slightly Cloudy (Clear)
[2025-04-06 04:06] LABS: Urine Squamous Cell >30 /LPF (Few)
[2025-04-06 04:14] LABS: Urine Red Blood Cell 0-2 /HPF (0-2)
--- NOTE | 2025-04-06 04:59 | PTCARENOTE ---
Pt received aaox3 from ER, able to make his needs known.Pt oriented to room & call garrison in reach.Pt family at bedside.Plan of care continued.
[2025-04-06] MEDS: VANCOCIN 275 MG IV (05:40)
--- NOTE | 2025-04-06 07:27 | W.PN.HOSP.TC ---
Addendum entered and electronically signed by Ciera Alatorre MD 04/06/25 14:17:
I saw and evaluated the patient independently. I reviewed the resident�s note and agree with findings and plan as documented by Dr. Arellano.
GENERAL: well developed, well nourished, male in no apparent distress
HEENT: NC/AT--no O2 requirements
HEART: regular rate and rhythm, +S1, +S2
LUNGS : clear to auscultation bilaterally
ABDOM: soft, nontender, nondistended, + bowel sounds
EXT: left leg markedly swollen and tender--knee bruised--thigh bruised--lower leg and foot edema 2+
NEUROLOGIC: grossly intact
swollen painful left leg--due to Left thigh hematoma likely from 'manipulation of recently replaced left knee' exacerbated by Eliquis (recent knee replacement on February 19 and manipulation under anesthesia 2 days prior to admission)--Ultrasound left
lower extremity showed 7.5cm hematoma in left thigh, and 6.5 cm cystic lesion in left popliteal fossa that could be hematoma vs. popliteal cyst (or both)--concern on exam for compartment syndrome--spoke with ortho who reassured against--apprec
ortho--will check CTA of left lower extremity with drop in HGB--cont to hold Eliquis--Q12H HGB, cont vascular checks--PT/OT/pain control--explained that leg will be swollen a long time
Likely persistent A-fib--apprec cards--restart Eliquis as soon as able
Leukocytosis--strongly suspect reactive as pt gives NO features consistent with infection--apprec ID and agree with stopping ABX
Acute blood loss Anemia (from hematoma exacerbated by Eliquis) on likely chronic disease--follow HGB R67W--vtgel with checking B12 and folate
Hyponatremia--likely SIADH from pain from knee--monitor sodium levels--if drops further, consider renal
Essential HTN- amlodipine
Hyperlipidemia- atorvastatin
CODE STATUS: Full code
DVT proph-- SCDs as able
Original Note:
Today's Communication/Plan
-
- CTA lower extremity
- Eliquis has been held
- q12h H&H (will be ordered as qPM H&H, and use the Hgb from CBC in daily morning labs)
- Monitor WBC, temperature
- Watch for compartment syndrome
- Frequent vascular checks
- Pain control
- f/u PT/OT consult
Assessment / Plan
Assessment / Plan
79 yo M PMH CVA, hypertension, hyperlipidemia, A-fib on Eliquis, left knee replacement on February, who had manipulation under anesthesia on 04/04.
Left thigh hematoma
History of recent knee replacement on February 19 and manipulation under anesthesia 2 days ago.
Presented with worsening edema and swelling/pain.
Ultrasound left lower extremity showed 7.5cm hematoma in left thigh, and 6.5 cm cystic lesion in left popliteal fossa that could be hematoma vs. popliteal cyst (or both).
Most likely etiology is hematoma from bleeding due to eliquis.
During our exam with attg, we appreciated tenseness/tightness in thigh and a Hgb from 9.0 to 8.2 was concerning for a developing compartment syndrome.
After discussion with Dr. Ponce, orthopedic surgeon, he reassured against compartment syndrome
However, shared decision-making agree to investigate for possible ongoing bleed with CTA lower extremity
Plan:
- CTA lower extremity
- Eliquis has been held
- q12h H&H (will be ordered as qPM H&H, and use the Hgb from CBC in daily morning labs).
- Watch for compartment syndrome
- Frequent vascular checks
- Pain control
- f/u PT/OT consult
Likely persistent A-fib
- Cardiology consulted, and per their note, eliquis should be held as minimum of a time as possible given CHADsVASC of 5.
- HR is within normal limits, no RVR
- Hold eliquis given hematoma, and f/u orthopedic recommendations
Leukocytosis
- likely reactive from hematoma
- ID consulted and rec discontinuing abx
- monitor temperature and WBC
Anemia - unclear whether acute vs. chronic
Macrocytosis
- Hgb 8.2, monitor H&H
- MCV of 102.4
- will add B12, folate to next series of labs
Hyponatremia
- Na+ 132
- monitor BMP
HTN
- amlodipine
Hyperlipidemia
- atorvastatin
CODE STATUS: Full code
DVT prophylaxis: SCDs
Diet: Regular diet
Anticipated Discharge: > 48 hours
Subjective/Interval History
-
Date of Service: April 06, 2025
79 yo M PMH CVA, hypertension, hyperlipidemia[facility], who had manipulation under anesthesia 2 days ago. The patient reports that manipulation was under sedation where they would forcefully
flex the knee to overcome any stiffness/resistance. A nerve block was not done at that time.
Experienced knee swelling and worsening knee pain over the weekend, and prompting him to come in.
This morning, says its better with rest
Objective Data
-
Labs:
Laboratory Results
04/06/25
07:01
WBC Pending
Hgb Pending
Hct Pending
Plt Count Pending
Sodium Pending
Potassium Pending
Chloride Pending
Carbon Dioxide Pending
BUN Pending
Creatinine Pending
Glucose Pending
Calcium Pending
WBC 14.1 with neutrophils
Hgb 8.2 from 9.0
Cr 0.6
Cx pending
Vital Signs:
Vital Signs
Temp Pulse Resp BP Pulse Ox
99.5 F 98 18 115/65 96
04/06/25 03:41 04/06/25 03:41 04/06/25 03:41 04/06/25 03:41 04/06/25 03:41
I&O
04/05/25 04/06/25 04/07/25
06:59 06:59 06:59
Intake Total 480 / 480
Output Total 775 / 775
Balance -295 / -295
Peripheral vascular US 04/05/2025
IMPRESSION: No evidence of deep venous thrombosis of the left lower extremity.
Complex cystic lesion without blood flow within in the soft tissues of the left thigh measuring 7.5 cm in greatest dimension most likely representing a hematoma. Follow-up imaging could be obtained to confirm complete resolution.
Complex 6.5 cm cystic lesion in the left popliteal fossa without blood flow within most likely representing a popliteal/Hubbard's cyst. Hematoma cannot be differentiated. Follow-up imaging could be obtained.
Review of Systems
-
History Source: Patient
Constitutional: Reports No Symptoms
EENT: Reports No Symptoms Reported
Respiratory: Reports No Symptoms
Cardiac: Reports No Symptoms
Abdomen/GI: Reports No Symptoms
Genitourinary: Reports No Symptoms
Musculoskeletal: Reports Joint Pain and Other (thigh swelling)
Neuro: Reports No Symptoms
Physical Exam
-
General: Conversant
HEENT: Normocephalic and Atraumatic
Respiratory: Clear to Auscultation
Cardiac: Other (no murmurs on my exam)
GI: Soft, Nontender and Nondistended
Musculoskeletal: Edema, Left Lower Extrem (redness, hematoma on left knee/thigh) and Other (peripheral pulses palpable, no paresthesias or motor deficit, tendeness to palpation)
Skin: Warm
Neuro: AO x 3
Psych: Anxious
[2025-04-06 07:58] LABS: Hematocrit 25.7 % (39.0-52.0); Hemoglobin 8.2 g/dL (13.0-18.0); Mean Corp Hgb Conc. 31.9 g/dL (33.0-37.0); Mean Corpuscular Volume 102.4 fL (80.0-94.0); Platelet Count 324 10^3/uL (130-400); Red Cell Dist. Width 14.8 % (11.5-14.5)
[2025-04-06] MEDS: LIPITOR 10 MG PO (08:12)
[2025-04-06 08:47] LABS: Blood Urea Nitrogen 14 mg/dl (9-20); Calcium 7.9 mg/dl (8.4-10.2); Carbon Dioxide 27 mmol/L (22-30); Chloride 104 mmol/L (98-107); Estimated Creatinine Clearance 110 ml/min; Glucose 96 mg/dl (70-99); Potassium 4.0 mmol/L (3.5-5.1); Sodium 132 mmol/L (135-145); eGFR > 60.00
--- NOTE | 2025-04-06 09:16 | CON.CAR ---
Addendum entered and electronically signed by Kelsie Cruz MD 04/06/25 13:56:
I saw and evaluated the patient, and I provided the substantive portion of the medical decision making.
I reviewed and agree with the note by MAYURI Zamorano and it accurately reflects our care.
I personally performed the medical decision making of the this encounter and my assessment and plan is below:
79 yo with recent diagnosis of af on preop EKG underwent total knee replacement on 02/19, and reports he been struggling with swelling ever since. We are asked to comment on his ongoing use of Eliquis after recent imaging shows left knee hematoma.
Labs also show a anemia with a hemoglobin down to 8.2. Outside of pain and swelling in his left knee, he is without complaint of chest pain shortness of breath. He has no signs of his arrhythmia. On exam he has an irregularly irregular rate and
rhythm with a normal S1-S2 no murmur rubs gallops were appreciated lungs were clear to auscultation bilaterally. Extremities show left edematous mid thigh to the lower leg, sutures in place over the anterior aspect of the knee.
Assessment:
Left lower extremity hematoma: Ortho recommending hold of Eliquis, given concern for hematoma and anemia, Eliquis being held. Recommend holding until orthopedics is comfortable that hemostasis has been achieved. There will be an increased risk of
CVA during the whole time. However, if concern for active bleeding/ongoing hematoma formation, Eliquis hold clearly indicated.
Atrial fibrillation: Unspecified duration, at least persistent. Rate controlled. Resume Eliquis when able.
Hypertension,: Chronic
History of CVA: Continue statin and blood pressure control. Resume Eliquis when able.
Recommendations discussed with Dr. Alatorre and team. I will see again at your request.
Original Note:
Consultation
Consultation Request
Date/Time Consultation Requested: 04/05/251816
Date/Time Consultation Performed: 04/06/25 3353
Requesting Provider: Dr. Coleman
Performing Provider: Raine MESSINA for Dr. Cruz
Reason for Consultation: hematoma, in patient on Eliquis for AFIB
Medical History
-
Chief Complaint: left leg swelling and pain
History of Present Illness:
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 He tells me that he has recently diagnosed AFIB over the past few months, which was noted on pre-op risk
assessment EKG at PCP. He was sent to see keyboard teacher who started Eliquis for OAC. Eliquis was on hold for a knee surgery in early February, but then resumed. Since his surgery, he has had swelling and pain to the left leg. On Sunday, he had
manipulation for this. His pain was so severe and he came to the hospital. Ultrasound showed complex cystic lesion without blood flow within in the soft tissues of the left thigh measuring 7.5 cm in greatest dimension most likely representing a
hematoma. Complex 6.5 cm cystic lesion in the left popliteal fossa without blood flow within most likely representing a popliteal/Hubbard's cyst. Hematoma cannot be differentiated. Anemia is noted. Unclear baseline after surgery. Eliquis is held. He
is on ABX for possible infection. He is in no distress at the time of my assessment.
Past Medical History
Past Medical History: Arrhythmias, CVA, HTN, Hypercholesterolemia, Seizures and Other (as above)
Social History
Tobacco: Former Smoker
Alcohol: Daily (about 1 beer per day)
Family History
Family History: Reviewed & Not Pertinent
Allergies / Home Medications
Allergy/AdvReac Type Severity Reaction Status Date / Time
No Known Allergies Allergy Verified 04/05/25 14:23
�Medication �Instructions �Recorded �Confirmed �Type
PreserVision AREDS 1 tab PO BID Supplement 08/01/23 04/05/25 History
amlodipine 2.5 mg tablet 2.5 mg PO QPM Blood Pressure 08/01/23 04/05/25 History
atorvastatin 10 mg tablet 10 mg PO DAILY High Cholesterol 08/01/23 04/05/25 History
apixaban 5 mg tablet (Eliquis) 5 mg PO BID Blood Clot 04/05/25 04/05/25 History
Prevention/Tx
docusate sodium 50 mg capsule 50 mg PO DAILY Constipation 04/05/25 04/05/25 History
oxycodone 5 mg tablet 5 mg PO Q6H PRN pain 04/05/25 04/05/25 History
polyethylene glycol 3350 17 gram 17 g PO DAILY Constipation 04/05/25 04/05/25 History
oral powder packet (Miralax)
Review of Systems
-
History Source: Patient
All other systems: Negative unless noted
Musculoskeletal: Edema (LLE pain and swelling)
Physical Exam
Vital Signs
Temp Pulse Resp BP Pulse Ox
98.2 F 88 16 116/66 97
04/06/25 07:30 04/06/25 07:30 04/06/25 07:30 04/06/25 07:30 04/06/25 07:30
Lab Results
04/06/25 07:01
04/06/25 07:01
Physical Exam
General: Well Developed, Well Nourished and No Apparent Distress
HEENT: Normocephalic and Anicteric
Respiratory: Clear and Non Labored Respirations
Cardiac: Irregular Rhythm
Musculoskeletal: Edema (LLE moderate swelling)
Neuro: AO x 3
Psych: Calm
Impression / Plan
-
LLE hematoma:
-Ultrasound showed complex cystic lesion without blood flow within in the soft tissues of the left thigh measuring 7.5 cm in greatest dimension most likely representing a hematoma. Complex 6.5 cm cystic lesion in the left popliteal fossa without
blood flow within most likely representing a popliteal/Hubbard's cyst. Hematoma cannot be differentiated.
-also with anemia- Unknown baseline post knee-surgery. Follow
-Must continue to hold Eliquis at this time
-he had recent knee surgery and manipulation and ortho has been consulted- recommend holding Eliquis for now as above
-also with concern for infection with WBC and low grade fever; on ABX and ID consulted
-pain management per primary
AFIB: likely persistent
-he does not feel it and it sounds like it was recently diagnosed prior to his knee surgery. He is not on AV anne-marie agent. HR 90's-100's.
-[id number] score is 5 for age, HTN, stroke. Eliquis has to be held for now, as above.
HTN:
-stable
-on amlodipine
Data Reviewed
-
EKG: Tracing Personally Visualized and interpreted
Ultrasound: Report Reviewed by me (Ultrasound showed complex cystic lesion without blood flow within in the soft tissues of the left thigh measuring 7.5 cm in greatest dimension most likely representing a hematoma. Complex 6.5 cm cystic lesion in
the left popliteal fossa without blood flow)
Labs: Labs Reviewed by me
--- NOTE | 2025-04-06 09:24 | PHA.VAN.FU ---
Vancomycin Assessment / Plan
- Assessment
Renal Function: Stable
WBC's are: Stable (14.1 from 14)
In the past 24 hrs, patient has been: Afebrile
Concomitant Antimicrobials: Cefepime
- Dosing Plan
Continue: 1250MG Q12H
- Monitoring Plan
No level(s) ordered at this time: Awaiting steady state
- Follow Up
Pharmacy will continue to follow.
Vancomycin Follow UP
- -
Patient Age: 79
Patient Sex: Male
Vancomycin Day #: 2
Indication: Bone And Joint
Requesting Provider: Dr. Krishnamurthy
Pertinent Antimicrobial Allergies:
NKA
Height / Weight:
Height 6 ft
Actual Weight 92.397 kg
Pertinent Past Medical History: Lf knee replacement 02/19/25
- Vital Signs / Lab Results
Temp Pulse Resp BP Pulse Ox
98.2 F 88 16 116/66 97
04/06/25 07:30 04/06/25 07:30 04/06/25 07:30 04/06/25 07:30 04/06/25 07:30
Lab Results - Hematology
04/05/25 04/06/25
14:33 07:01
WBC 14.0 H 14.1 H
Lab Results - Chemistry
04/05/25 04/06/25
14:33 07:01
BUN 16 14
Creatinine 0.6 L 0.6 L
Estimated Creat Clear 106 110
Albumin 2.9 L
Lab Results - Urine
04/06/25
02:09
Urine Nitrite (Reflex) Negative
Leukocyte Esterase Rfl 1+ A
Ur Squamous Epith Cells >30
--- NOTE | 2025-04-06 10:03 | CON.ID ---
Consultation
-
Date/Time Consultation Requested: 04/05/2025 1805
Date/Time Consultation Performed: 04/06/2025 1000
Requesting Provider: Dr. Coleman
Performing Provider: Dr. Singh
Reason for Consultation: Cellulitis
Chief Complaint / Past History
History of Present Illness
Faraz Greenwood is a 79-year-old man being evaluated at the request of Dr. Coleman regarding leukocytosis and possible left lower extremity SSTI. History is obtained from chart review, along with patient interview.
The patient has a significant past medical history of CVA and A-fib (on Eliquis) and reports he underwent a left total knee replacement on 02/19/2025 at [place]. He reports he did well following surgery but then therapy seem to stall, and he
underwent manipulation under anesthesia on 04/03 to increase left knee range of motion. He reports following return home he had significant pain in the leg, with marked increase in swelling. Ultimately he called his PCP and was sent to the
emergency room for further evaluation.
Here, he was found to have a leukocytosis. Ultrasound of the left lower extremity revealed a complex cystic lesion in the soft tissues of the left thigh suspected to be hematoma. Because of leukocytosis, the patient was started on empiric
antibiotics, and Infectious Diseases is asked to comment upon further antibiotic therapy.
The patient denies any prior fevers or chills. He notes significant pain in the left knee and distal thigh. He denies any inguinal discomfort. He has complained also of some hematuria.
Past History
Additional Past Medical History:
Hx CVA
HTN
HLD
A-fib (on Eliquis)
T-cell lymphoma
Hx seizures
BPH
Nephrolithiasis
Osteoarthritis
Additional Past Surgical History:
Left TKA (02/19/2025)
Cervical discectomy/fusion
Right TKA
Carpal tunnel release
Prostate surgery
Hx splenectomy
Allergy History:
No Known Allergies Allergy (Verified 04/05/25 14:23)
Medications Reviewed: Yes
Current Antibiotics:
Vancomycin (dosing per pharmacy)
Cefepime
Social History
Tobacco: Former Smoker
Alcohol: Daily
Drug: None
Personal:
Living: With Family
Employment: Retired
Family History
Family History: Not Pertinent
Review of Systems
Vital Signs
Temp Pulse Resp BP Pulse Ox
98.2 F 88 16 116/66 97
04/06/25 07:30 04/06/25 07:30 04/06/25 07:30 04/06/25 07:30 04/06/25 07:30
Physical Exam
Physical Exam
Constitutional: No Acute Distress, Comfortable and Non-toxic
Eyes: No Conjunctival Hemorrhage and Sclera Anicteric
Oral: No Thrush and No Ulcers
Cardiovascular: Regular Rate and S1/S2; Negative S3/S4
Pulmonary: Clear; Negative Wheezes, Rales or Rhonchi
Gastrointestinal: Soft, Non Tender and Non Distended
Genito-Urinary: Negative Perez
Extremities: Edema (LLE) and Erythema (mild; LLE)
Skin: Warm and Dry; Negative Rash
Neurological: Awake and Alert
Psychological: Calm
.
Lab / Diagnostic Study Results
04/06/25 07:01
04/06/25 07:01
Abs Immat Gran (auto) 0.1 10^3/uL (0-0.05) H 04/05/25 14:33
Absolute Neuts (auto) 11.1 10^3/uL (1.4-6.5) H 04/05/25 14:33
Absolute Lymphs (auto) 1.0 10^3/uL (1.2-3.4) L 04/05/25 14:33
Absolute Monos (auto) 1.7 10^3/uL (0.1-0.6) H 04/05/25 14:33
Absolute Basos (auto) 0.0 10^3/uL (0-0.2) 04/05/25 14:33
Immature Gran % 0.4 % (0-0.5) 04/05/25 14:33
Neutrophils % 79.0 % (42.2-75.2) H 04/05/25 14:33
Lymphocytes % 7.0 % (20.5-51.1) L 04/05/25 14:33
Monocytes % 12.3 % (1.7-9.3) H 04/05/25 14:33
Eosinophils % 1.0 % (0-6) 04/05/25 14:33
Basophils % 0.3 % (0-2) 04/05/25 14:33
Ur Squamous Epith Cells >30 /LPF (Few) 04/06/25 02:09
Microbiology Results
Micro:
04/06/25 02:09 Urine Culture - Pending
Urine
04/05/25 20:03 Blood Culture - Pending
Blood/Venous
Imaging:
04/05/2025 Ultrasound left lower extremity: Complex cystic lesion without blood flow within in the soft tissues of the left thigh measuring 7.5 cm in greatest dimension most likely representing a hematoma. Follow-up imaging could be obtained to
confirm complete resolution. Complex 6.5 cm cystic lesion in the left popliteal fossa without blood flow within most likely representing a popliteal/Hubbard's cyst. Hematoma cannot be differentiated. Follow-up imaging could be obtained.
04/06/2025 X-ray left knee: Left total knee arthroplasty without evidence of hardware complication. There is no evidence of periprosthetic fracture or dislocation. There is a likely joint effusion.
Assessment / Plan
Left lower extremity pain/swelling
Suspected left leg hematoma
Leukocytosis
S/p left TKA (02/19/2025) with manipulation (04/03/2025)
Hx CVA
HTN
HLD
A-fib (on Eliquis)
T-cell lymphoma
Hx seizures
BPH
Nephrolithiasis
Osteoarthritis
Recommendations:
Given rapid onset and association with leg manipulation, suspect left leg swelling is due to hematoma.
Leukocytosis is likely reactive.
Discontinue further antibiotics and observe.
Management of hematoma as per Ortho and Cardiology
Monitor white count and temperature curve.
Lower extremity elevation to facilitate edema drainage.
Continue supportive measures.
[2025-04-06] MEDS: DILAUDID 0.5 MG IV ×2 (12:44→16:54)
--- NOTE | 2025-04-06 14:04 | CM ---
Patient seen at bedside with physicians. Patient states that after his surgery in February patient went to [facility]? and was home for 2 weeks with outpatient therapy before procedure on 04/02/25. Patient stated that his PCP is Dr. Mehta and
he uses the [place] pharmacy. Patient plan is for home with [facility] but unable to confirm who he had in the past. Patient requested CM speak with . CM will continue to follow for discharge planning needs.
Plan; home with [facility] vs SNF
[2025-04-06] MEDS: NORVASC 2.5 MG PO (16:54)
--- NOTE | 2025-04-06 17:08 | CON.ORTHO ---
Consultation
-
Date/Time Consultation Performed: 04/05/2025 8 pm
Consultation - Orthopedics
History
79-year-old male presented to the emergency department complaints of left knee pain swelling into his thigh. He had a history of recent total knee arthroplasty and subsequent left knee manipulation with worsening of swelling. Ultrasound was
performed that identified likely hematoma. He was admitted to the hospital service for pain control and consideration of placement as it was felt that he was unsafe to return home. Orthopedics was consulted for further evaluation and treatment.
This evening patient reports that he had significant swelling stiffness limited motion since his index procedure performed in 02/19. More recently he underwent manipulation under anesthesia left knee for diminished range of motion postoperative
setting. He reports that since this time he has had some worsening swelling and pain. He does note that he is on Eliquis at baseline.
Allergies / Home Medications
Past medical history: T-cell lymphoma, hypertension, hypercholesterolemia, seizures, BPH, renal calculus, cervical degenerative disc disease, bilateral knee osteoarthritis
Past surgical history: Cervical discectomy fusion, right total knee arthroplasty, left total knee arthroplasty, carpal tunnel surgery, TURP, splenectomy
Family history: Not pertinent
Social history: Former smoker, , lives with family
Allergy/AdvReac Type Severity Reaction Status Date / Time
No Known Allergies Allergy Verified 04/05/25 14:23
�Medication �Instructions �Recorded
PreserVision AREDS 1 tab PO BID Supplement 08/01/23
amlodipine 2.5 mg tablet 2.5 mg PO QPM Blood Pressure 08/01/23
atorvastatin 10 mg tablet 10 mg PO DAILY High Cholesterol 08/01/23
apixaban 5 mg tablet (Eliquis) 5 mg PO BID Blood Clot 04/05/25
Prevention/Tx
docusate sodium 50 mg capsule 50 mg PO DAILY Constipation 04/05/25
oxycodone 5 mg tablet 5 mg PO Q6H PRN pain 04/05/25
polyethylene glycol 3350 17 gram 17 g PO DAILY Constipation 04/05/25
oral powder packet (Miralax)
Vital Signs / Lab Results
Temp Pulse Resp BP Pulse Ox
101.0 F H 95 16 129/69 99
04/06/25 16:03 04/06/25 16:54 04/06/25 15:30 04/06/25 16:54 04/06/25 15:30
04/06/25 18:00
04/06/25 07:01
10 point review systems reviewed and negative unless otherwise stated
General: Pleasant, no acute distress at rest supine in bed
Musculoskeletal left lower extremity
Significant swelling throughout the thigh, there is no obvious erythema although there are some skin changes more chronic in appearance, several nylon sutures noted inferior aspect of otherwise well-healed anterior knee surgical incision
Patient has difficulty with straight leg raise
There is no palpable gaps or deformity
There is palpable knee effusion
Thigh is swollen but soft and compressible
Calf soft and compressible
Painless active ankle dorsiflexion, plantarflexion
Wrist cap refill distally
Palpable pulses
Diagnostic studies
Ultrasound report reviewed shows collection extending into thigh likely front desk representative of hematoma
Assessment / Plan
79-year-old male history of recent left total knee arthroplasty subsequent manipulation under anesthesia with hematoma formation, significant pain and swelling. He is a patient of Dr. Eleazar trevino. I did reach out to Dr. Trevino to discuss his care.
He was aware of the situation. Recommended obtaining an x-ray of left knee to evaluate for potential fracture given recent manipulation under anesthesia. Otherwise he recommended supportive measures including elevation ice immobilization with
physical therapy. Would recommend holding Eliquis unless otherwise contraindicated given likely hematoma.
Weightbearing as tolerated left lower extremity
PT OT
Pain control
Hold Eliquis unless otherwise medically contraindicated resume per medical team
Medical management per primary team
No acute orthopedic intervention planned
Plan to follow-up outpatient upon discharge with Dr. Trevino for further evaluation and care
--- NOTE | 2025-04-06 17:15 | W.PN.UPDATE ---
Update Note
Progress Note Update
Patient was seen bedside at about 1245 this afternoon. Medical service reached out as there was some concern for potential compartment syndrome left leg.
Upon my evaluation patient was resting comfortably in his bed in no acute distress. He reported really no significant increase in pain. He reports that he was able to ambulate briefly to a chair without too much difficulty today. Clinical
examination although swollen his thigh is soft compressible and when distracted really causes mild to moderate discomfort only. Unable to passively flex and extend ankle without recreation of discomfort
Calf is soft and compressible
Patient is able to actively flex and extend ankle without reproducible pain. There is palpable pulses distally with brisk cap refill
My clinical impression is left leg swelling secondary to hematoma without compartment syndrome. Did discuss with primary team as they are planning to obtain a CTA to evaluate for any potential persistent bleed that may be contributing to his
hematoma. CTA was performed and this was reviewed. Radiology port reviewed. There is no evidence of persistent bleed. Radiographs were also obtained left knee reviewed by myself that did not show any obvious fracture or abnormality of the
implant. Certainly would recommend continued ice elevation and continued monitoring of patient swelling. Certainly if there is any change clinically please reach out with questions or concerns. Otherwise would recommend continued mobilization
pain control and follow-up outpatient with surgeon of record.
[2025-04-06 19:17] LABS: Hematocrit 24.0 % (39.0-52.0); Hemoglobin 7.6 g/dL (13.0-18.0)
[2025-04-06 20:43] LABS: Folate 5.6 ng/ml (2.76-20); Vitamin B12 564 pg/ml (239-931)
[2025-04-07] VITALS (8 sets, daily range): BP systolic 110–127; BP diastolic 67–78; PULSE 96–97; O2SAT 98
[2025-04-07 03:19] LABS: Hematocrit 23.2 % (39.0-52.0); Hemoglobin 7.6 g/dL (13.0-18.0); Mean Corp Hgb Conc. 32.8 g/dL (33.0-37.0); Mean Corpuscular Volume 100.0 fL (80.0-94.0); Nucleated Red Blood Cells % 0 % (-); Platelet Count 358 10^3/uL (130-400); Red Cell Dist. Width 14.7 % (11.5-14.5)
[2025-04-07 03:39] LABS: Blood Urea Nitrogen 15 mg/dl (9-20); Calcium 7.9 mg/dl (8.4-10.2); Carbon Dioxide 23 mmol/L (22-30); Chloride 104 mmol/L (98-107); Estimated Creatinine Clearance 110 ml/min; Glucose 105 mg/dl (70-99); Potassium 4.1 mmol/L (3.5-5.1); Sodium 131 mmol/L (135-145); eGFR > 60.00
--- NOTE | 2025-04-07 07:06 | W.PN.HOSP.TC ---
Addendum entered and electronically signed by Ciera Alatorre MD 04/07/25 14:32:
I saw and evaluated the patient independently. I reviewed the resident�s note and agree with findings and plan as documented by Dr. Arellano.
GENERAL: well developed, well nourished, male in no apparent distress
HEENT: NC/AT--no O2 requirements
HEART: regular rate and rhythm, +S1, +S2
LUNGS : clear to auscultation bilaterally
ABDOM: soft, nontender, nondistended, + bowel sounds
EXT: left leg markedly swollen and tender--knee bruised--thigh bruised--lower leg and foot edema 2+
NEUROLOGIC: grossly intact
swollen painful left leg--due to Left thigh hematoma likely from 'manipulation of recently replaced left knee' exacerbated by Eliquis (recent knee replacement on February 19 and manipulation under anesthesia 2 days prior to admission)--Ultrasound left
lower extremity showed 7.5cm hematoma in left thigh, and 6.5 cm cystic lesion in left popliteal fossa that could be hematoma vs. popliteal cyst (or both)--concern on exam for compartment syndrome--spoke with ortho who reassured against--apprec
ortho--CTA of left leg shows no active bleeding--cont to hold Eliquis--Q12H HGB, cont vascular checks--PT/OT/pain control--explained that leg will be swollen a long time
Likely persistent A-fib--apprec cards--restart Eliquis as soon as able
Leukocytosis/fever--strongly suspect reactive from hematoma--apprec ID and agree with stopping ABX
Acute blood loss Anemia (from hematoma exacerbated by Eliquis) on likely chronic disease--follow HGB L53A--xapkr with checking B12 and folate --HGB dropped to 7.6 and holding--if drops below 7 then transfuse
Hyponatremia--likely SIADH from pain from knee--monitor sodium levels--if drops further, consider renal
Essential HTN- amlodipine
Hyperlipidemia- atorvastatin
CODE STATUS: Full code
DVT proph-- SCDs as able
Original Note:
Today's Communication/Plan
-
- monitor Hgb
- transfuse if hgb < 7
- monitor WBC and temperature
- elevated leg with ice to symptomatically manage hematoma
- f/u orthopedic and ID recs
Assessment / Plan
Assessment / Plan
79 yo M PMH CVA, essential hypertension, hyperlipidemia, A-fib on Eliquis, left knee replacement on February, who had manipulation under anesthesia on 04/04.
Left thigh hematoma
History of recent knee replacement on February 19 and manipulation under anesthesia 2 days ago.
Presented with worsening edema and swelling/pain.
Ultrasound left lower extremity showed 7.5cm hematoma in left thigh, and 6.5 cm cystic lesion in left popliteal fossa that could be hematoma vs. popliteal cyst (or both).
Most likely etiology is hematoma from bleeding due to eliquis.
CTA lower extremity negative for active extravasation; however, lower extremity appears more swollen than yesterday
Hgb did drop to 7.6, serial measurements stable at 7.6
BP stable at 125/78, HR technically tachycardic at 100; no evidence of blood in urine, he denies BM, and he denies vomting
Plan:
- H&H at noon showed 7.6, stable
- Patient has been consented to receive blood transfusion if Hgb < 7.0; type & screen completed and on record
- monitor Hgb
- Eliquis has been held
- Watch for compartment syndrome
- Frequent vascular checks
- Pain control, elevation of leg, and ice
- PT/OT will continue to follow
- f/u orthopedic surgery recommendations
Leukocytosis with fever
- likely reactive from hematoma, per ID documentation, fever could be reactive to hematoma too
- WBC at 14.4
- per ID, if WBC continues to increase, there is a concern for an infected hematoma which would need to be sampled/cultured
- per ID, recommended to continue to monitor off abx
- monitor temperature and WBC
Likely persistent A-fib
- Cardiology consulted, and per their note, eliquis should be held as minimum of a time as possible given CHADsVASC of 5.
- HR is within normal limits, no RVR
- Hold eliquis given hematoma, and f/u orthopedic recommendations
Anemia - likely acute blood loss anemia
Macrocytosis
- Hgb 7.6, stable from noon H&H, will check serial H&H
- B12 and folate were within normal limits
Hyponatremia
- Na+ 131
- monitor BMP
Essential HTN
- amlodipine
Hyperlipidemia
- atorvastatin
CODE STATUS: Full code
DVT prophylaxis: SCDs
Diet: Regular diet
Anticipated Discharge: > 48 hours
Subjective/Interval History
-
Date of Service: April 07, 2025
feels better, pain is improving with hydromorphone. but feels 'puffier' in the leg.
febrile to 100.8, Hgb 7.6. type and screen resulted.
B12, folate normal
PT will continue to evaluate.
Objective Data
-
Labs:
Laboratory Results
04/06/25 04/07/25 04/07/25
19:03 02:59 18:00
WBC 14.4 H
Hgb 7.6 L 7.6 L Pending
Hct 24.0 L 23.2 L Pending
Plt Count 358
Sodium 131 L
Potassium 4.1
Chloride 104
Carbon Dioxide 23
BUN 15
Creatinine 0.6 L
Glucose 105 H
Calcium 7.9 L
8.2 -> 7.6 (7pm) -> 7.6 (3am)
CTA lower extremity:
IMPRESSION:
1. There is no evidence of active extravasation.
2. There is enlargement of the vastus musculature which is likely posttraumatic with a 7.2 x 6.8 x 4.0 cm hyperdense intramuscular collection within the superior medial thigh which likely represents a hematoma. Additionally there is mild soft tissue
stranding and edema within the superficial soft tissues which may represent superficial contusion.
3. Partially visualized collection within the popliteal fossa which likely represents the known complex Hubbard's cyst.
4. Total knee arthroplasty. There is a moderate joint effusion with internal complexity which may be secondary to synovitis or possible hemarthrosis.
Vital Signs:
Vital Signs
Temp Pulse Resp BP Pulse Ox
100.8 F H 100 20 125/78 96
04/07/25 03:22 04/07/25 03:22 04/07/25 03:22 04/07/25 03:22 04/07/25 03:22
febrile
I&O
04/06/25 04/07/25 04/08/25
06:59 06:59 06:59
Intake Total 480 / 480 1200 / 1200
Output Total 775 / 775 1900 / 1900
Balance -295 / -295 -700 / -700
Review of Systems
-
History Source: Patient
Constitutional: Reports No Symptoms
EENT: Reports No Symptoms Reported
Respiratory: Reports No Symptoms
Cardiac: Reports No Symptoms
Abdomen/GI: Reports No Symptoms
Musculoskeletal: Reports Joint Pain and Joint Swelling
Neuro: Reports No Symptoms
Physical Exam
-
General: Conversant
HEENT: Normocephalic
Respiratory: Clear to Auscultation
Cardiac: Other (no murmurs)
GI: Soft, Nontender and Nondistended
Musculoskeletal: Edema, Left Upper Extrem (bruising, swelling appears more from yesterday, but thigh is compressible, no paresthesias, foot appears more swollen)
Neuro: AO x 3 and No Motor Deficits
Psych: Calm
[2025-04-07] MEDS: TYLENOL 650 MG PO ×2 (07:18→16:05)
[2025-04-07] MEDS: DILAUDID 0.5 MG IV ×3 (07:18→22:02)
[2025-04-07] MEDS: LIPITOR 10 MG PO (09:45)
[2025-04-07] MEDS: FLUSH (NSS) 1 FLUSH IV (09:49)
[2025-04-07] MEDS: MIRALAX 17 GRAMS PO (09:56)
--- NOTE | 2025-04-07 11:45 | W.PN.ID1 ---
Date of Service
Date of Service: April 07, 2025
Today's Communication
Monitor off antibiotics.
Assessment / Plan
Left lower extremity pain/swelling
Suspected left leg hematoma
Leukocytosis
S/p left TKA (02/19/2025) with manipulation (04/03/2025)
Hx CVA
HTN
HLD
A-fib (on Eliquis)
T-cell lymphoma
Hx seizures
BPH
Nephrolithiasis
Osteoarthritis
Recommendations:
Given rapid onset and association with leg manipulation, suspect left leg swelling is due to hematoma.
Leukocytosis is likely reactive. Noted fevers likely secondary to hematoma.
Would continue to monitor off of antibiotics for now.
If white count continues to increase, there remains the possibility that the hematoma could be infected, which would require sampling/culture to guide antibiotic selection.
Management of hematoma as per Ortho and Cardiology
Monitor white count and temperature curve.
Lower extremity elevation to control edema.
Continue supportive measures.
����������������������������������������������������������
Chief Complaint
-: Fever and Leukocytosis
Subjective / Review of Systems
Patient seen and examined. Reports ongoing left distal thigh discomfort. Little discomfort in the knee area, though.
Review of Systems: No Chills
Vital Signs / Physical Exam
Vital Signs
Vital Signs
Temp Pulse Resp BP Pulse Ox
99.7 F 97 16 113/74 98
04/07/25 07:05 04/07/25 07:05 04/07/25 07:05 04/07/25 07:05 04/07/25 07:05
Physical Exam
Constitutional: No Acute Distress, Comfortable and Non-toxic
Eyes: Sclera Anicteric
Cardiovascular: S1/S2; Negative S3/S4
Pulmonary: Non Labored
Gastrointestinal: Soft and Non Tender
Extremities: Edema (2+ left thigh) and Erythema (Minimal.)
Musculoskeletal: Joint Swelling (Left knee)
Skin: Warm and Dry
Neurological: Awake and Alert
Psychological: Calm
Objective Data
Lab Data
Lab Results
04/07/25 02:59
Estimated Creat Clear 110 ml/min 04/07/25 02:59
Total Bilirubin 2.8 mg/dl (0.2-1.3) H 04/05/25 14:33
AST 22 U/L (17-59) 04/05/25 14:33
ALT 14 U/L (0-50) 04/05/25 14:33
Alkaline Phosphatase 122 U/L (38-126) 04/05/25 14:33
Most recent labs reviewed.
Micro Results:
04/06/25 02:09 Urine Culture - Final
Urine NO GROWTH
04/05/25 20:03 Blood Culture - Preliminary
Blood/Venous No Growth in 24 hours- Final report to follow
Imaging:
04/05/2025 Ultrasound left lower extremity: Complex cystic lesion without blood flow within in the soft tissues of the left thigh measuring 7.5 cm in greatest dimension most likely representing a hematoma. Follow-up imaging could be obtained to
confirm complete resolution. Complex 6.5 cm cystic lesion in the left popliteal fossa without blood flow within most likely representing a popliteal/Hubbard's cyst. Hematoma cannot be differentiated. Follow-up imaging could be obtained.
04/06/2025 X-ray left knee: Left total knee arthroplasty without evidence of hardware complication. There is no evidence of periprosthetic fracture or dislocation. There is a likely joint effusion.
[2025-04-07 12:21] LABS: Hematocrit 24.0 % (39.0-52.0); Hemoglobin 7.6 g/dL (13.0-18.0)
--- NOTE | 2025-04-07 15:01 | CM ---
Addendum entered by Kat Beatty 04/07/25 16:10:
Therapy now recommending possible Acute rehab pending patient functional needs at discharge
Addendum entered by Kat Beatty 04/07/25 15:09:
Patient answered and indicated she would want VN to follow when patient was medically ready for discharge. CM will update liaison and physician.
Original Note:
Patient seen at bedside with physicians on . Patient complaining of pain today. CM called to patient to request update on which VN patient would want to have if recommended at discharge. VM left on home number and cell phone. CM
will continue to follow for discharge planning needs.
Plan; home with VN; pending medical treatment plan
--- NOTE | 2025-04-07 16:01 | VNURNOTE ---
Home Health Liaison met with patient at bedside. He was sound asleep. Spouse at bedside and we discussed [facility] nurse/therapy, visits, schedule and homebound status. Spouse understands that visits at home will be 2-3 x per week to assess and
teach medical management. Advised that [facility] will contact them for start of care within a week after discharge from . Provided contact number for [facility]. Noted PT recs= Acute Rehab.
Spouse agreeable to VN, however, realizes that pt may benefit from Acute Rehab. Spouse is waiting for a more definitive DC plan. She is aware that if pt goes to rehab that they can order VN upon DC there.
[facility] referral in S[facility]ED status in Care Port.
--- NOTE | 2025-04-07 16:05 | PTCARENOTE ---
patient temp 101.8. Dr Alatorre and Dr Arellano made aware. Dr Arellano at bedside to evaluate patient. Dr Arellano discussed with Dr Singh. Tylenol given as ordered. will continue to monitor temps. plan of care on going.
[2025-04-07 18:07] LABS: Hematocrit 23.8 % (39.0-52.0); Hemoglobin 7.7 g/dL (13.0-18.0)
[2025-04-07] MEDS: NORVASC 2.5 MG PO (18:15)
[2025-04-07] MEDS: KEFLEX 500 MG PO (21:57)
--- NOTE | 2025-04-08 03:00 | DOWNTIME ---
There was a [employer] Downtime on 04/08/2025 from 0100 to 04/08/2025 at 0255. Downtime documentation of patient's care, including medication administrations, has been reconciled in the electronic record per guidelines. Refer to the
patient's paper chart under the miscellaneous tab to see printed paper medication records and downtime forms.
[2025-04-08 03:46] VITALS: BP 120/73
[2025-04-08] MEDS: TYLENOL 650 MG PO ×2 (04:39→19:41)
--- NOTE | 2025-04-08 07:19 | W.PN.HOSP.TC ---
Addendum entered and electronically signed by Ciera Alatorre MD 04/08/25 16:11:
I saw and evaluated the patient independently. I reviewed the resident�s note and agree with findings and plan as documented by Dr. Arellano.
GENERAL: well developed, well nourished, male in no apparent distress
HEENT: NC/AT--no O2 requirements
HEART: regular rate and rhythm, +S1, +S2
LUNGS : clear to auscultation bilaterally
ABDOM: soft, nontender, nondistended, + bowel sounds
EXT: left leg markedly swollen and tender--knee bruised--thigh bruised--lower leg and foot edema 2+--> slowly improving
NEUROLOGIC: grossly intact
swollen painful left leg--due to Left thigh hematoma likely from 'manipulation of recently replaced left knee' exacerbated by Eliquis (recent knee replacement on February 19 and manipulation under anesthesia 2 days prior to admission)--Ultrasound left
lower extremity showed 7.5cm hematoma in left thigh, and 6.5 cm cystic lesion in left popliteal fossa that could be hematoma vs. popliteal cyst (or both)--apprec ortho--CTA of left leg shows no active bleeding--HGB has remained stable restart
Eliquis, cont vascular checks--PT/OT/pain control--explained that leg will be swollen a long time--therapy rec Acute rehab--consult Dr. Lind
Likely persistent A-fib--apprec cards--restart Eliquis
Leukocytosis/fever--strongly suspect reactive from hematoma--apprec ID and agree with stopping ABX--HOWEVER, pt primary orthopedic surgeon wants cephalexin started for 5 days--ID agreeable
Acute blood loss Anemia (from hematoma exacerbated by Eliquis) on likely chronic disease--B12 and folate WNL --HGB dropped to 7.6 and holding
Hyponatremia--likely SIADH from pain from knee--monitor sodium levels--if drops further, consider renal
Essential HTN- amlodipine
Hyperlipidemia- atorvastatin
CODE STATUS: Full code
DVT proph-- SCDs as able
Original Note:
Today's Communication/Plan
-
- H&H, monitor Hgb
- resume apixaban
- f/u PMR consult
- continue Keflex 500mg qid
Assessment / Plan
Assessment / Plan
79 yo M PMH CVA, essential hypertension, hyperlipidemia, A-fib on Eliquis, left knee replacement on February, who had manipulation under anesthesia on 04/04.
Left thigh hematoma
History of recent knee replacement on February 19 and manipulation under anesthesia 2 days ago.
Presented with worsening edema and swelling/pain.
Ultrasound left lower extremity showed 7.5cm hematoma in left thigh, and 6.5 cm cystic lesion in left popliteal fossa that could be hematoma vs. popliteal cyst (or both).
Most likely etiology is hematoma from bleeding due to eliquis.
CTA lower extremity negative for active extravasation; however, lower extremity appears more swollen than yesterday
Hgb did drop to 7.6, serial measurements stable at 7.6 -> suggests that he may have bled into the thigh and is now equilibrating
VSS
Plan:
- Hgb stable at 7.7
- started kelfex 500mg qid for 5 days from 04/07 22:00 after discussion with ortho (Dr. Trevino via Dr. Ponce) and ID.
- will do pm H&H
- Patient has been consented to receive blood transfusion if Hgb < 7.0; type & screen completed and on record
- monitor Hgb
- Eliquis will now be resumed with PM dose because Hgb appears stable, and anticoagulation is indicated
- Watch for compartment syndrome
- Frequent vascular checks
- Pain control, elevation of leg, and ice
- PT/OT recommended acute rehab: discussed with patient, he is amenable to acute rehab/Red
- PMR has been consulted for evaluation
- f/u orthopedic surgery recommendations
Leukocytosis with fever
- likely reactive from hematoma, per ID documentation, fever could be reactive to hematoma too
- WBC decreased to 13.3, and last documented fever was 101.8 yesterday evening.
- per ID, if WBC continues to increase, there is a concern for an infected hematoma which would need to be sampled/cultured
- per ID and ortho: started kelfex 500mg qid for 5 days from 04/07 22:00 after discussion with ortho (Dr. Trevino via Dr. Ponce) and ID.
- symptoms appear improved, but monitor temperature and WBC
Likely persistent A-fib
- Cardiology consulted, and per their note, eliquis should be held as minimum of a time as possible given CHADsVASC of 5.
- HR is within normal limits, no RVR
- resume eliquis
Anemia - likely acute blood loss anemia
Macrocytosis
- Hgb 7.7, stable but will continue serial H&H
- B12 and folate were within normal limits
Hyponatremia
- Na+ 132
- monitor BMP
Essential HTN
- amlodipine
Hyperlipidemia
- atorvastatin
CODE STATUS: Full code
DVT prophylaxis: SCDs
Diet: Regular diet
Anticipated Discharge: 24 - 48 hours
Subjective/Interval History
-
Date of Service: April 08, 2025
feels better, less pain in leg
Objective Data
-
Labs:
Laboratory Results
04/08/25 04/08/25
07:00 07:01
WBC Pending
Hgb Pending
Hct Pending
Plt Count Pending
Sodium Pending
Potassium Pending
Chloride Pending
Carbon Dioxide Pending
BUN Pending
Creatinine Pending
Glucose Pending
Calcium Pending
WBC 13.3 14.4
Hgb 7.7 stable
no other fevers since 101.8
keflex 500 qid
Vital Signs:
Vital Signs
Temp Pulse Resp BP Pulse Ox
99 F 95 18 120/73 98
04/08/25 06:06 04/08/25 03:46 04/08/25 03:46 04/08/25 03:46 04/08/25 03:46
I&O
04/07/25 04/08/25 04/09/25
06:59 06:59 06:59
Intake Total 1200 / 1200 240 / 240
Output Total 1900 / 1900 925 / 925
Balance -700 / -700 -685 / -685
Review of Systems
-
History Source: Patient
Constitutional: Reports No Symptoms
EENT: Reports No Symptoms Reported
Respiratory: Reports No Symptoms
Cardiac: Reports No Symptoms
Abdomen/GI: Reports No Symptoms
Musculoskeletal: Reports Joint Pain and Joint Swelling
Neuro: Reports No Symptoms
Physical Exam
-
General: Conversant
HEENT: Normocephalic
Respiratory: Clear to Auscultation
Cardiac: Other (no murmurs)
GI: Soft, Nontender and Nondistended
Musculoskeletal: Edema, Left Upper Extrem (bruising, swelling appears IMPROVED from yesterday, but thigh is compressible, no paresthesias; less tenderness to palpation too)
Neuro: AO x 3 and No Motor Deficits
Psych: Calm
[2025-04-08 07:31] LABS: Hematocrit 24.3 % (39.0-52.0); Hemoglobin 7.7 g/dL (13.0-18.0); Mean Corp Hgb Conc. 31.7 g/dL (33.0-37.0); Mean Corpuscular Volume 100.4 fL (80.0-94.0); Platelet Count 356 10^3/uL (130-400); Red Cell Dist. Width 15.1 % (11.5-14.5)
[2025-04-08 07:35] VITALS: BP 133/86
[2025-04-08] MEDS: LIPITOR 10 MG PO (07:52)
[2025-04-08] MEDS: KEFLEX 500 MG PO ×4 (07:56→21:46)
[2025-04-08 08:19] LABS: Blood Urea Nitrogen 16 mg/dl (9-20); Calcium 7.8 mg/dl (8.4-10.2); Carbon Dioxide 26 mmol/L (22-30); Chloride 104 mmol/L (98-107); Estimated Creatinine Clearance 110 ml/min; Glucose 99 mg/dl (70-99); Potassium 4.3 mmol/L (3.5-5.1); Sodium 132 mmol/L (135-145); eGFR > 60.00
[2025-04-08] MEDS: SENOKOT-S 1 TABLET PO ×2 (09:57→19:46)
[2025-04-08] MEDS: DILAUDID 0.5 MG IV ×2 (09:58→14:17)
[2025-04-08] MEDS: MIRALAX 17 GRAMS PO (10:01)
[2025-04-08 11:39] VITALS: BP 127/65
--- NOTE | 2025-04-08 13:12 | W.PN.ID1 ---
Date of Service
Date of Service: April 08, 2025
Today's Communication
Continue Keflex.
Assessment / Plan
Left lower extremity pain/swelling
Suspected left leg hematoma
Leukocytosis
S/p left TKA (02/19/2025) with manipulation (04/03/2025)
Hx CVA
HTN
HLD
A-fib (on Eliquis)
T-cell lymphoma
Hx seizures
BPH
Nephrolithiasis
Osteoarthritis
Recommendations:
Given rapid onset and association with leg manipulation, suspect left leg swelling is due to hematoma.
Leukocytosis is likely reactive. Noted fevers likely secondary to hematoma.
Case discussed with Hospitalist last evening, who was in communication with original Orthopedic Surgeon who wanted several days of Keflex, which was started last night. No objection from ID standpoint.
Continue to monitor white count temperature curve. Temperature curve noted to be somewhat improved today.
Management of hematoma as per Ortho and Cardiology
Lower extremity elevation to control edema.
Continue supportive measures.
����������������������������������������������������������
Chief Complaint
-: Fever and Leukocytosis
Subjective / Review of Systems
Patient seen and examined. Reports left leg is feeling somewhat improved today. Notes decreased tenderness and discomfort.
Review of Systems: No Fever and No Chills
Vital Signs / Physical Exam
Vital Signs
Vital Signs
Temp Pulse Resp BP Pulse Ox
99.7 F 88 18 127/65 97
04/08/25 11:39 04/08/25 11:39 04/08/25 11:39 04/08/25 11:39 04/08/25 11:39
Physical Exam
Constitutional: No Acute Distress, Comfortable and Non-toxic
Eyes: Sclera Anicteric
Cardiovascular: S1/S2; Negative S3/S4
Pulmonary: Non Labored
Gastrointestinal: Soft and Non Tender
Extremities: Edema (2+ left thigh) and Erythema (Minimal.)
Musculoskeletal: Joint Swelling (Left knee)
Skin: Warm and Dry
Neurological: Awake and Alert
Psychological: Calm
Objective Data
Lab Data
Lab Results
04/08/25 07:00
04/08/25 07:01
Estimated Creat Clear 110 ml/min 04/08/25 07:01
Total Bilirubin 2.8 mg/dl (0.2-1.3) H 04/05/25 14:33
AST 22 U/L (17-59) 04/05/25 14:33
ALT 14 U/L (0-50) 04/05/25 14:33
Alkaline Phosphatase 122 U/L (38-126) 04/05/25 14:33
Most recent labs reviewed.
Micro Results:
04/05/25 20:03 Blood Culture - Preliminary
Blood/Venous No Growth in 48 hours- Final report to follow
04/06/25 02:09 Urine Culture - Final
Urine NO GROWTH
Imaging:
04/05/2025 Ultrasound left lower extremity: Complex cystic lesion without blood flow within in the soft tissues of the left thigh measuring 7.5 cm in greatest dimension most likely representing a hematoma. Follow-up imaging could be obtained to
confirm complete resolution. Complex 6.5 cm cystic lesion in the left popliteal fossa without blood flow within most likely representing a popliteal/Hubbard's cyst. Hematoma cannot be differentiated. Follow-up imaging could be obtained.
04/06/2025 X-ray left knee: Left total knee arthroplasty without evidence of hardware complication. There is no evidence of periprosthetic fracture or dislocation. There is a likely joint effusion.
Care Review
Plan reviewed with: Physician (Hospitalist)
[2025-04-08 15:10] VITALS: BP 128/85
--- NOTE | 2025-04-08 17:08 | CM ---
PT OT indicated acute rehab ,
Spoke with Reyna she requested [facility] . Referral placed for [facility]
MD entered Dr Lind consult.
ID involved
PLAN To [facility] if accepted.
[2025-04-08] MEDS: NORVASC 2.5 MG PO (17:35)
[2025-04-08 17:50] LABS: Hematocrit 24.7 % (39.0-52.0); Hemoglobin 8.3 g/dL (13.0-18.0)
[2025-04-08 19:30] VITALS: BP 129/70
[2025-04-08] MEDS: ELIQUIS 5 MG PO (19:42)
[2025-04-08 23:03] VITALS: BP 123/69
[2025-04-09 03:38] VITALS: BP 131/78
[2025-04-09 06:58] VITALS: BP 121/72
[2025-04-09 07:13] LABS: Blood Urea Nitrogen 15 mg/dl (9-20); Calcium 7.9 mg/dl (8.4-10.2); Carbon Dioxide 25 mmol/L (22-30); Chloride 106 mmol/L (98-107); Estimated Creatinine Clearance 110 ml/min; Glucose 94 mg/dl (70-99); Hematocrit 24.3 % (39.0-52.0); Hemoglobin 8.0 g/dL (13.0-18.0); Mean Corp Hgb Conc. 32.9 g/dL (33.0-37.0); Mean Corpuscular Volume 94.6 fL (80.0-94.0); Platelet Count 472 10^3/uL (130-400); Potassium 4.4 mmol/L (3.5-5.1); Red Cell Dist. Width 14.9 % (11.5-14.5); Sodium 135 mmol/L (135-145); eGFR > 60.00
--- NOTE | 2025-04-09 07:17 | W.PN.HOSP.TC ---
Addendum entered and electronically signed by Ciera Alatorre MD 04/09/25 17:45:
I saw and evaluated the patient independently. I reviewed the resident�s note and agree with findings and plan as documented by Dr. Arellano.
GENERAL: well developed, well nourished, male in no apparent distress
HEENT: NC/AT--no O2 requirements
HEART: regular rate and rhythm, +S1, +S2
LUNGS : clear to auscultation bilaterally
ABDOM: soft, nontender, nondistended, + bowel sounds
EXT: left leg markedly swollen and tender--knee bruised--thigh bruised--lower leg and foot edema 2+--> slowly improving
NEUROLOGIC: grossly intact
swollen painful left leg--due to Left thigh hematoma likely from 'manipulation of recently replaced left knee' exacerbated by Eliquis (recent knee replacement on February 19 and manipulation under anesthesia 2 days prior to admission)--Ultrasound left
lower extremity showed 7.5cm hematoma in left thigh, and 6.5 cm cystic lesion in left popliteal fossa that could be hematoma vs. popliteal cyst (or both)--apprec ortho--CTA of left leg shows no active bleeding--HGB has remained stable restarted
Eliquis--PT/OT/pain control--explained that leg will be swollen a long time--therapy rec Acute rehab--await Dr. Lind--medically ready for d/c
Likely persistent A-fib--apprec cards--restarted Eliquis
Leukocytosis/fever--strongly suspect reactive from hematoma--apprec ID and agree with stopping ABX--HOWEVER, pt primary orthopedic surgeon wants cephalexin started for 5 days--ID agreeable
Acute blood loss Anemia (from hematoma exacerbated by Eliquis) on likely chronic disease--B12 and folate WNL --HGB dropped to 7.6 and holding
Hyponatremia--likely SIADH from pain from knee--monitor sodium levels--if drops further, consider renal
Essential HTN- amlodipine
Hyperlipidemia- atorvastatin
CODE STATUS: Full code
DVT proph-- SCDs as able
Original Note:
Today's Communication/Plan
-
- continue Keflex
- follow-up PMR consult
- f/u ID, ortho recommendations
- monitor VS, Hgb, and WBC
Assessment / Plan
Assessment / Plan
79 yo M PMH CVA, essential hypertension, hyperlipidemia, A-fib on Eliquis, left knee replacement on February, who had manipulation under anesthesia on 04/04.
Left thigh hematoma
History of recent knee replacement on February 19 and manipulation under anesthesia 2 days ago.
Presented with worsening edema and swelling/pain.
Ultrasound left lower extremity showed 7.5cm hematoma in left thigh, and 6.5 cm cystic lesion in left popliteal fossa that could be hematoma vs. popliteal cyst (or both).
Most likely etiology is hematoma from bleeding due to eliquis.
CTA lower extremity negative for active extravasation; however, lower extremity appears more swollen than yesterday
Plan:
- Hgb stable at 8.0
- Patient has been consented to receive blood transfusion if Hgb < 7.0; type & screen completed and on record
- monitor Hgb
- continue apixaban (resumed on 04/08); Hgb appears stable, and anticoagulation is indicated
- Watch for compartment syndrome
- Frequent vascular checks
- Pain control, elevation of leg, and ice
- continue kelfex 500mg qid for 5 days from 04/07 22:00 after discussion with ortho (Dr. Trevino via Dr. Ponce) and ID.
- PT/OT recommended acute rehab: discussed with patient, he is amenable to acute rehab/[facility]
- PMR has been consulted - f/u recommendations
- f/u orthopedic surgery recommendations
Leukocytosis with fever
- likely reactive from hematoma, per ID documentation, fever could be reactive to hematoma too
- WBC decreased to 11.8, and last documented fever was 101.6, 04/08 evening.
- continue kelfex 500mg qid for 5 days from 04/07 22:00 after discussion with ortho (Dr. Trevino via Dr. Ponce) and ID.
- symptoms appear improved, monitor temperature and WBC
Likely persistent A-fib
- Cardiology consulted, and per their note, eliquis should be held as minimum of a time as possible given CHADsVASC of 5.
- HR is within normal limits, no RVR
- continue apixaban
Anemia - likely acute blood loss anemia
Macrocytosis
- Hgb 8.0 stable, monitor with AM CBC labs
- B12 and folate were within normal limits
Hyponatremia, resolved
- Na+ 135
- monitor BMP
Essential HTN
- amlodipine
Hyperlipidemia
- atorvastatin
CODE STATUS: Full code
DVT prophylaxis: SCDs
Diet: Regular diet
Anticipated Discharge: > 48 hours
Subjective/Interval History
-
Date of Service: April 09, 2025
feels well, sleeping
Objective Data
-
Labs:
Laboratory Results
04/09/25
06:18
WBC 11.8 H
Hgb 8.0 L
Hct 24.3 L
Plt Count 472 H D
Sodium 135
Potassium 4.4
Chloride 106
Carbon Dioxide 25
BUN 15
Creatinine 0.5 L
Glucose 94
Calcium 7.9 L
Vital Signs:
Vital Signs
Temp Pulse Resp BP Pulse Ox
98.7 F 88 18 131/78 97
04/09/25 03:38 04/09/25 03:38 04/09/25 03:38 04/09/25 03:38 04/09/25 03:38
fever to 101.6 in evening yesterday, temperature normalized since then
I&O
04/08/25 04/09/25 04/10/25
06:59 06:59 06:59
Intake Total 240 / 240 1620 / 1620
Output Total 925 / 925 2124 / 2124
Balance -685 / -685 -505 / -505
Review of Systems
-
History Source: Patient
Constitutional: Reports No Symptoms
EENT: Reports No Symptoms Reported
Respiratory: Reports No Symptoms
Cardiac: Reports No Symptoms
Abdomen/GI: Reports No Symptoms
Musculoskeletal: Reports Joint Pain and Joint Swelling
Neuro: Reports No Symptoms
Physical Exam
-
General: Conversant
HEENT: Normocephalic
Respiratory: Clear to Auscultation
Cardiac: Other (no murmurs)
GI: Soft, Nontender and Nondistended
Musculoskeletal: Edema, Left Upper Extrem (bruising, swelling on thigh, is compressible, no paresthesias)
Neuro: AO x 3 and No Motor Deficits
Psych: Calm
[2025-04-09] MEDS: ELIQUIS 5 MG PO ×2 (08:39→19:50)
[2025-04-09] MEDS: LIPITOR 10 MG PO (08:39)
[2025-04-09] MEDS: KEFLEX 500 MG PO ×4 (08:40→21:20)
[2025-04-09 10:55] VITALS: BP 120/67
[2025-04-09] MEDS: DILAUDID 0.5 MG IV ×3 (11:32→21:56)
--- NOTE | 2025-04-09 14:10 | W.PN.ID1 ---
Date of Service
Date of Service: April 09, 2025
Today's Communication
Continue keflex.
Assessment / Plan
Left lower extremity pain/swelling
Suspected left leg hematoma
Leukocytosis
S/p left TKA (02/19/2025) with manipulation (04/03/2025)
Hx CVA
HTN
HLD
A-fib (on Eliquis)
T-cell lymphoma
Hx seizures
BPH
Nephrolithiasis
Osteoarthritis
Recommendations:
Given rapid onset and association with leg manipulation, suspect left leg swelling is due to hematoma.
Leukocytosis is likely reactive. Noted fevers likely secondary to hematoma.
Case previously discussed with Hospitalist, who was in communication with original Orthopedic Surgeon who wanted several days of Keflex, which was started last night. No objection from ID standpoint.
Continue to monitor white count temperature curve. Temperature curve noted to be somewhat improved today.
Management of hematoma as per Ortho and Cardiology
Lower extremity elevation to control edema.
Continue supportive measures.
����������������������������������������������������������
Chief Complaint
-: Fever and Leukocytosis
Subjective / Review of Systems
Pt seen / examined. Left thigh feeling slightly better.
Review of Systems: No Fever and No Chills
Vital Signs / Physical Exam
Vital Signs
Vital Signs
Temp Pulse Resp BP Pulse Ox
99.3 F 83 20 120/67 97
04/09/25 10:55 04/09/25 10:55 04/09/25 10:55 04/09/25 10:55 04/09/25 10:55
Physical Exam
Constitutional: No Acute Distress, Comfortable and Non-toxic
Eyes: Sclera Anicteric
Cardiovascular: S1/S2; Negative S3/S4
Pulmonary: Non Labored
Gastrointestinal: Soft and Non Tender
Extremities: Edema (2+ left thigh) and Erythema (Minimal.)
Musculoskeletal: Joint Swelling (Left knee)
Skin: Warm and Dry
Neurological: Awake and Alert
Psychological: Calm
Objective Data
Lab Data
Lab Results
04/09/25 06:18
04/09/25 06:18
Estimated Creat Clear 110 ml/min 04/09/25 06:18
Total Bilirubin 2.8 mg/dl (0.2-1.3) H 04/05/25 14:33
AST 22 U/L (17-59) 04/05/25 14:33
ALT 14 U/L (0-50) 04/05/25 14:33
Alkaline Phosphatase 122 U/L (38-126) 04/05/25 14:33
Most recent labs reviewed.
Micro Results:
04/05/25 20:03 Blood Culture - Preliminary
Blood/Venous No Growth in 72 hours- Final report to follow
04/06/25 02:09 Urine Culture - Final
Urine NO GROWTH
Imaging:
04/05/2025 Ultrasound left lower extremity: Complex cystic lesion without blood flow within in the soft tissues of the left thigh measuring 7.5 cm in greatest dimension most likely representing a hematoma. Follow-up imaging could be obtained to
confirm complete resolution. Complex 6.5 cm cystic lesion in the left popliteal fossa without blood flow within most likely representing a popliteal/Hubbard's cyst. Hematoma cannot be differentiated. Follow-up imaging could be obtained.
04/06/2025 X-ray left knee: Left total knee arthroplasty without evidence of hardware complication. There is no evidence of periprosthetic fracture or dislocation. There is a likely joint effusion.
--- NOTE | 2025-04-09 14:54 | CM ---
Patient seen at bedside with physician. Pending PM&R assessment for [facility]. Patient indicated that he did want to go to [facility] if possible. CM checked referral sent in all scripts awaiting confirmation of ability to accept. CM will continue to follow
for discharge planning needs.
Plan; [facility] pending acceptance/PM&R
[2025-04-09 15:01] VITALS: BP 117/68
--- NOTE | 2025-04-09 17:01 | CON.MD ---
Consultation - Medical
-
Chief Complaint:�Left thigh hematoma
�
History of Present Illness:�79-year-old male with PMH (as below) presented to [facility] on 04/05/2025 with left lower extremity swelling and pain. He had a left knee replacement on 02/19/2025 with manipulation under anesthesia 2 days prior
to presentation to the emergency department. He was found to have a hematoma but no DVT. Found to have leukocytosis and a low-grade fever. Concern for infected hematoma and started on vancomycin and cefepime. No acute intervention per
orthopedics. Nasim chopra. Seen by infectious disease with feeling that leukocytosis is reactive and no further antibiotics were necessary. Started on Keflex per original orthopedic surgeon.
�
Past Medical History:�T-cell lymphoma, HTN, hypercholesterolemia, seizures, BPH, renal calculus, osteoarthritis, cervical disc disease
Procedure History:�Cervical discectomy with C4-5, C5-6, C6-7 fusion. Right total knee replacement, carpal tunnel surgery, prostate surgery, splenectomy
Family History:�None pertinent
�
Social History:�
Functional Level Premorbidly:�Independent with all activities�
Functional Level Currently:�Mod assist lower extremity self-care, min assist bed mobility. Min assist bed mobility and transfers. Ambulating 10 feet with rolling walker with min assist.
�
Tobacco:�Former smoker
Alcohol:�Daily
Drug use:�Denies�
�
Lives with:�Spouse
24-hour assistance available:�Yes
Number of floors:�2
# steps to enter:�3
# steps to second floor: Stair glide
Potential First floor set up:�No
Driving:�Yes
Occupation:�Retired
�
�
Allergies:�
Allergy/AdvReac Type Severity Reaction Status Date / Time
No Known Allergies Allergy Verified 04/05/25 14:23
�
Review of Systems:�
Constitutional: (x) abNormal _tired
Eye: (x) Normal _
Ear/Nose/Throat: (x) Normal _
Respiratory: (x) Normal _
Cardiovascular: (x) Normal _
Gastrointestinal: (x) Normal _
Genitourinary: (x) Normal _
Musculoskeletal: (x) abNormal _left leg pain stiffness
Integumentary: (x) abNormal _ swollen left leg and hematoma
Neurologic: (x) Normal _
Psychiatric: (x) Normal _
Endocrine: (x) Normal _
Hematologic/Lymphatic: (x) Normal _
Allergic/Immunologic: (x) Normal _
�
Medications:�
Active Current Visit Medication List
Category Date Time Status
Acetaminophen [Tylenol] Med 04/07/25 00:42 Active
650 mg PO Q4HPRN PRN
Amlodipine [Norvasc] Med 04/05/25 19:03 Active
2.5 mg PO QPM
Apixaban [Eliquis] Med 04/08/25 20:00 Active
5 mg PO BID
Atorvastatin [Lipitor] Med 04/06/25 08:00 Active
10 mg PO DAILY
Bisacodyl [Dulcolax] Med 04/05/25 19:03 Active
10 mg RECTAL [id number] PRN
Cephalexin Monohydrate [Keflex] Med 04/07/25 22:00 Active
500 mg PO QID
Docusate W/Senna [Senokot-S] Med 04/05/25 19:03 Active
1 tablet PO BIDPRN PRN
Flush (0.9% Sodium Chloride) [Flush (Nss)] Med 04/05/25 20:00 Active
See Dose Instructions IV PER PROTOCOL
HYDROmorphone [Dilaudid] Med 04/05/25 19:03 Active
0.5 mg IV Q4HPRN PRN
Polyethylene Glycol Powder [Miralax] Med 04/05/25 19:03 Active
17 grams PO DAILYPRN PRN
�
Vitals:�
Temp Pulse Resp BP Pulse Ox
99.4 F 89 16 117/68 99
04/09/25 15:01 04/09/25 15:01 04/09/25 15:01 04/09/25 15:01 04/09/25 15:01
Height 6 ft
Actual Weight 92.397 kg
Body Mass Index (BMI) 27.7
�
Physical Exam:�
General Appearance/Observation: Well-developed, well-nourished male in no apparent distress.�
Pain/Comfort Assessment: Left leg pain can be severe and limiting activity
Mood/Affect: Appropriate�
�
Integumentary/Operative Site:�Left knee incision healing 3 sutures distal incision. Ecchymosis left thigh.
�
Eyes: Conjunctiva/Lids: normal��� Pupils: pupils equal round and reactive to light
Ears/Nose/Throat: oral mucosa moist, throat clear.������������ Lips/Teeth/Gums: normal
Neck: No muscle spasm or tenderness�
Cardiovascular: Heart: regular, no murmur�
Pulses: dorsalis pedis 2+ bilaterally�
Respiratory: Respiratory Effort/Chest Expansion: normal������ Auscultation: Clear to auscultation bilaterally
Gastrointestinal: abdomen not tender, no distension, normal abdominal bowel sounds
Genitourinary: No Perez�
Rectal Exam: Deferred�
Extremities:�Edema: Left leg edema particularly over left knee and thigh.�Cyanosis: None�Trophic�changes: None
�
Neurology Exam:
Orientation: Alert, Oriented to self, Time, Place�
Memory: Intact for recent medical concerns
Comprehension: Intact
Two step command: Intact
Cranial Nerves:
�� CNII:�Pupillary light reflex: Intact���
�� CN VII:�Facial movement: Symmetric
�� CN VIII:�Hearing: Normal
�� CN IX/X:�Speech & swallow: Normal,�Position of Uvula: Midline
�� CN XI:�Shoulder shrug: Symmetric
�� CN XII:�Tongue protrusion: Midline
Sensory:
�� Light touch: Intact in bilateral upper and lower extremities
�
Reflexes:
�� Biceps: 2+ bilaterally
�� Brachioradialis: 2+ bilaterally
�� Triceps: 2+ bilaterally
�� Patellar: 2+ right
�� Achilles: 2+ bilaterally
Musculoskeletal: Motor: (Manual muscle scale 0-5)�
Muscle SA EF WE EE FF FA HF KE DF EHL PF
Right� 5 5 5 5 4 5 5 5 5
Left 5 5 5 5 1* 1* 5 5 5
�
Tone: Normal in all extremities�
Range of Motion: Passively within normal limits in all extremities, except decreased both shoulders�
�
Lab Results
Laboratory Data
04/09/25 06:18
04/09/25 06:18
Total Bilirubin 2.8 mg/dl (0.2-1.3) H 04/05/25 14:33
AST 22 U/L (17-59) 04/05/25 14:33
ALT 14 U/L (0-50) 04/05/25 14:33
Alkaline Phosphatase 122 U/L (38-126) 04/05/25 14:33
Total Protein 5.9 g/dl (6.3-8.2) L 04/05/25 14:33
Albumin 2.9 g/dl (3.5-5.0) L 04/05/25 14:33
�
Diagnostic Results:�as per HPI�
�
Assessment
79-year-old male with recent left total knee replacement requiring manipulation under anesthesia with complication of significant left lower extremity hematoma causing pain and decreased mobility resulting in ADL and ambulatory dysfunction.
Plan�
PM&R�PT/OT to increase independence with ADLs, improve balance, coordination, endurance, strength, mobility, community reintegration, decreased burden of care on others and family education.�
�
Status post unilateral TKA 02/19/25: Monitor incision, pain control, incision care per orthopedics, may shower, dressings can be removed postop day 7, sully removed postop day 14. Maintain full range of motion.�
-Consistent icing.
Leukocytosis with fever: Could be reactive due to recent manipulation. Concern for possible infection etiology per orthopedic team that performed the surgery. Patient on Keflex for 7 days.
Likely persistent atrial fibrillation: Eliquis temporarily held because of hematoma. Should be held as little as possible given [id number] score of 5. At risk for cardioembolic event. Not on rate control medication.
Acute anemia from hematoma on top of postoperative anemia: Secondary to manipulation on Eliquis. Continue to monitor with Eliquis held. Will need to restart Eliquis soon to help prevent cardioembolic event. Will need close monitoring while on
Eliquis for further bleeding
�
HTN: Amlodipine, monitor closely�
HLD: Statin�
�
Pain: acetaminophen or oxycodone as needed.� Must be stable off of IV Dilaudid prior to transfer to rehab.
Bowel: Colace and Senna on opioid medications, PRN bisacodyl.�
Bladder: Time void, PVRs, PRN straight cath.�
DVT Prophylaxis: Mechanical.�
Pulmonary: Incentive spirometry�
Safety: Continue to reinforce assistance with all transfers.�
Code Status:� Full code
Dispo�(date/plan/equipment needs): Home with family care.� Social history reviewed.�
Functional and Medical Goals:�Modified Independent with ADL�s, ambulation, transfers�
Discharge Destination:�Patient requires daily rehabilitation program, I do not think he will tolerate 3 hours of therapy at this time. Suggest SNF transfer to help push ROM, activity tolerance, and monitor for further complications after discussion
with patient. Will need pain medication adjustment.
�
Thank you for allowing me to care for your patient. Please contact me with any questions or concerns.
Consultation
-
Date/Time Consultation Requested: 04/08/25
Date/Time Consultation Performed: 04/09/25
Requesting Provider: Dr. Ciera Alatorre
Performing Provider: Dr. Eleazar Lind
Reason for Consultation: Left thigh hematoma
[2025-04-09] MEDS: NORVASC 2.5 MG PO (17:26)
[2025-04-09 20:02] VITALS: BP 130/77
[2025-04-09] MEDS: SENOKOT-S 1 TABLET PO (21:21)
[2025-04-09] MEDS: TYLENOL 650 MG PO (21:21)
[2025-04-09 23:14] VITALS: BP 114/67
[2025-04-10 03:22] VITALS: BP 114/72
[2025-04-10] MEDS: DILAUDID 0.5 MG IV ×2 (06:23→13:47)
[2025-04-10 07:11] VITALS: BP 122/73
--- NOTE | 2025-04-10 07:13 | W.PN.HOSP.TC ---
Addendum entered and electronically signed by Ciera Alatorre MD 04/10/25 17:32:
I saw and evaluated the patient independently. I reviewed the resident�s note and agree with findings and plan as documented by Dr. Arellano.
GENERAL: well developed, well nourished, male in no apparent distress
HEENT: NC/AT--no O2 requirements
HEART: regular rate and rhythm, +S1, +S2
LUNGS : clear to auscultation bilaterally
ABDOM: soft, nontender, nondistended, + bowel sounds
EXT: left leg markedly swollen and tender--knee bruised--thigh bruised--lower leg and foot edema 2+--> slowly improving
NEUROLOGIC: grossly intact
swollen painful left leg--due to Left thigh hematoma likely from 'manipulation of recently replaced left knee' exacerbated by Eliquis (recent knee replacement on February 19 and manipulation under anesthesia 2 days prior to admission)--Ultrasound left
lower extremity showed 7.5cm hematoma in left thigh, and 6.5 cm cystic lesion in left popliteal fossa that could be hematoma vs. popliteal cyst (or both)--apprec ortho--CTA of left leg shows no active bleeding--HGB has remained stable restarted
Eliquis--PT/OT/pain control--explained that leg will be swollen a long time--therapy rec Acute rehab, Dr. Lind does not believe he can tolerate 3 hours of therapy a day, therefore SNF--medically ready for d/c
Likely persistent A-fib--apprec cards--restarted Eliquis
Leukocytosis/fever--strongly suspect reactive from hematoma--apprec ID and agree with stopping ABX--HOWEVER, pt primary orthopedic surgeon wants cephalexin started for 5 days--ID agreeable
Acute blood loss Anemia (from hematoma exacerbated by Eliquis) on likely chronic disease--B12 and folate WNL --HGB dropped to 7.6 and holding
Hyponatremia--likely SIADH from pain from knee--monitor sodium levels--if drops further, consider renal
Essential HTN- amlodipine
Hyperlipidemia- atorvastatin
CODE STATUS: Full code
DVT proph-- SCDs as able
Original Note:
Today's Communication/Plan
-
possible discharge today to [facility], will f/u with case management
continue keflex
Assessment / Plan
Assessment / Plan
79 yo M PMH CVA, essential hypertension, hyperlipidemia, A-fib on Eliquis, left knee replacement on February, who had manipulation under anesthesia on 04/04.
Left thigh hematoma
History of recent knee replacement on February 19 and manipulation under anesthesia 2 days ago.
Presented with worsening edema and swelling/pain.
Ultrasound left lower extremity showed 7.5cm hematoma in left thigh, and 6.5 cm cystic lesion in left popliteal fossa that could be hematoma vs. popliteal cyst (or both).
Most likely etiology is hematoma from bleeding due to eliquis.
CTA lower extremity negative for active extravasation; however, lower extremity appears more swollen than yesterday
Plan:
- Hgb stable at 8.1
- continue apixaban (resumed on 04/08); Hgb appears stable, and anticoagulation is indicated
- continue kelfex 500mg qid until 04/12 after discussion with ortho (Dr. Trevino via Dr. Ponce) and ID.
- PMR recommends SNF
Leukocytosis with fever
- likely reactive from hematoma, per ID documentation, fever could be reactive to hematoma too
- WBC normalized 10.4, no fevers overnight
- continue kelfex 500mg qid until 04/12 after discussion with ortho (Dr. Trevino via Dr. Ponce) and ID.
Likely persistent A-fib
- continue apixaban
Anemia - likely acute blood loss anemia
Macrocytosis
- Hgb 8.1 stable
- B12 and folate were within normal limits
Hyponatremia
- Na+ 133; could be attribtued to pain
- monitor
Essential HTN
- amlodipine
Hyperlipidemia
- atorvastatin
CODE STATUS: Full code
DVT prophylaxis: SCDs
Diet: Regular diet
Anticipated Discharge: Within 24 hours
Subjective/Interval History
-
Date of Service: April 10, 2025
feels better
Objective Data
-
Labs:
Laboratory Results
04/10/25
06:58
WBC Pending
Hgb Pending
Hct Pending
Plt Count Pending
Sodium Pending
Potassium Pending
Chloride Pending
Carbon Dioxide Pending
BUN Pending
Creatinine Pending
Glucose Pending
Calcium Pending
WBC 10.4
Plt 540 from 462 from 356
Vital Signs:
Vital Signs
Temp Pulse Resp BP Pulse Ox
98.5 F 82 16 114/72 97
04/10/25 03:22 04/10/25 03:22 04/10/25 03:22 04/10/25 03:22 04/10/25 03:22
afebrile
I&O
04/09/25 04/10/25 04/11/25
06:59 06:59 06:59
Intake Total 1620 / 1620 1340 / 1340
Output Total 2124 / 2124
Balance -505 / -505 -735 / -735
Review of Systems
-
History Source: Patient
Constitutional: Reports No Symptoms
EENT: Reports No Symptoms Reported
Respiratory: Reports No Symptoms
Cardiac: Reports No Symptoms
Abdomen/GI: Reports No Symptoms
Musculoskeletal: Reports Joint Pain and Joint Swelling
Neuro: Reports No Symptoms
Physical Exam
-
General: Conversant
HEENT: Normocephalic
Respiratory: Clear to Auscultation
Cardiac: Other (no murmurs)
GI: Soft, Nontender and Nondistended
Musculoskeletal: Edema, Left Upper Extrem (bruising, swelling on thigh, is compressible, no paresthesias)
Neuro: AO x 3 and No Motor Deficits
Psych: Calm
[2025-04-10] MEDS: KEFLEX 500 MG PO ×3 (07:52→17:08)
[2025-04-10] MEDS: LIPITOR 10 MG PO (07:53)
[2025-04-10] MEDS: ELIQUIS 5 MG PO (07:53)
[2025-04-10] MEDS: FLUSH (NSS) 1 FLUSH IV ×2 (07:53→13:47)
[2025-04-10 08:02] LABS: Hematocrit 25.2 % (39.0-52.0); Hemoglobin 8.1 g/dL (13.0-18.0); Mean Corp Hgb Conc. 32.1 g/dL (33.0-37.0); Mean Corpuscular Volume 99.6 fL (80.0-94.0); Platelet Count 540 10^3/uL (130-400); Red Cell Dist. Width 15.4 % (11.5-14.5)
[2025-04-10 08:54] LABS: Blood Urea Nitrogen 14 mg/dl (9-20); Calcium 7.8 mg/dl (8.4-10.2); Carbon Dioxide 24 mmol/L (22-30); Chloride 105 mmol/L (98-107); Estimated Creatinine Clearance 110 ml/min; Glucose 91 mg/dl (70-99); Potassium 4.2 mmol/L (3.5-5.1); Sodium 133 mmol/L (135-145); eGFR > 60.00
--- NOTE | 2025-04-10 15:36 | CM ---
Addendum entered by Kat Beatty 04/10/25 15:52:
CM spoke with and all questions updated and addressed.
Original Note:
Patient accepted to go to [facility] today. please call report to [phone]/fax [phone]. CM called to patient to update and will fax transportation forms to health unit clerk. Patient and given IMM form and reviewed verbally with CM when seen
at bedside. CM will continue to follow for discharge planning needs.
Plan; transfer to [facility]> today
[2025-04-10 15:46] VITALS: BP 114/68
--- NOTE | 2025-04-10 15:51 | W.DCSUMMARY ---
Addendum entered and electronically signed by Ciera Alatorre MD 04/10/25 18:52:
Read, reviewed, and agree. See same day progress note for additional details. Time spent coordinating care, DC planning, review of DC plan of care with resident, transition of care, review of records in EMR, med rec, consults, notes, d/w
consultants, nursing, family, and CM = 32 minutes
Original Note:
Discharge Summary
Discharge Data
Date of Admission: 04/05/25
Date of Discharge: 04/10/25
-
Pending Results: No
Hospital Course
Discharging Physician : Dr. Ciera Alatorre; Dr. Maynor Arellano
Disposition : SNF
Primary care physician : Thad Mehta
Principal Discharge diagnosis : Hematoma of left knee region
Chronic Discharge diagnosis : CVA, essential hypertension, hyperlipidemia, A-fib on Eliquis, left knee replacement, T-cell lymphoma, seizures, BPH, renal calculus, osteoarthritis, cervical disc disease
Hospital Course :
79 yo M PMH CVA, hypertension, hyperlipidemia, of A-fib on Eliquis, left knee replacement on February, who had manipulation under anesthesia on 04/03/2205. The patient reports that manipulation was under sedation where they would forcefully
flex the knee to overcome any stiffness/resistance. A nerve block was not done at that time. Experienced knee swelling and worsening knee pain over the weekend, and prompting him to come in. Ultrasound left lower extremity showed 7.5cm hematoma in
left thigh.
Over the course of the hospitalization, he was intermittently febrile, and experienced a leukocytosis, both of which resolved by the time he was discharged. There was also concern for possible compartment syndrome earlier in the hospitalization
course, however, CTA lower extremity showed no active bleed. After discussion with cardiology, eliquis was transient held due to concern for bleed/hematoma formation. It was eventually resumed on 04/08 after serial Hgb were stable and CTA showed no
active bleed.
After discussion with Dr. Ponce and Dr. Singh, with orthopedics and ID respectively. He was started on cephalexin 500mg PO QID on 04/07 evening for a 5-day course.
After discussion with Dr. Lind with Physiatry, discharge to SNF was recommended.
The following problems were address during this admission.
Left thigh hematoma
History of recent knee replacement on February 19 and manipulation under anesthesia 2 days ago.
Presented with worsening edema and swelling/pain.
Ultrasound left lower extremity showed 7.5cm hematoma in left thigh, and 6.5 cm cystic lesion in left popliteal fossa that could be hematoma vs. popliteal cyst (or both).
Most likely etiology is hematoma from bleeding due to eliquis.
CTA lower extremity negative for active extravasation; however, lower extremity appears more swollen than yesterday, reassuring against a compartment syndrome.
After discussion with orthopedic, ID, per primary orthopedic surgeon, keflex 5 day course was started on 04/07. ID was okay with the plan.
Plan:
- Hgb stable at 8.1
- apixaban was resumed on 04/08 because anticoagulation is indicated.
- continue kelfex 500mg qid until 04/12 after discussion with ortho (Dr. Trevino via Dr. Ponce) and ID.
- PMR recommends SNF
Leukocytosis with fever
- likely reactive from hematoma, per ID documentation, fever is reactive to hematoma too
- However, over the past 12 hours, WBC normalized 10.4, and no fevers overnight
- continue kelfex 500mg qid until 04/12 after discussion with ortho (Dr. Trevino via Dr. Ponce) and ID.
Likely persistent A-fib
- continue apixaban
Anemia - likely acute blood loss anemia
Macrocytosis
- Hgb 8.1 stable
- B12 and folate were within normal limits
Hyponatremia
- Na+ 133; could be attributed to pain
- asymptomatic
Essential HTN
- amlodipine
Hyperlipidemia
- atorvastatin
Important imaging findings :
Peripheral vascular US 04/05/2025
IMPRESSION: No evidence of deep venous thrombosis of the left lower extremity.
Complex cystic lesion without blood flow within in the soft tissues of the left thigh measuring 7.5 cm in greatest dimension most likely representing a hematoma. Follow-up imaging could be obtained to confirm complete resolution.
Complex 6.5 cm cystic lesion in the left popliteal fossa without blood flow within most likely representing a popliteal/Hubbard's cyst. Hematoma cannot be differentiated. Follow-up imaging could be obtained.
Knee x-ray 04/06/2025
FINDINGS/IMPRESSION:
Left total knee arthroplasty without evidence of hardware complication. There is no evidence of periprosthetic fracture or dislocation. There is a likely joint effusion.
CTA lower extremity 04/06/2025
IMPRESSION:
1. There is no evidence of active extravasation.
2. There is enlargement of the vastus musculature which is likely posttraumatic with a 7.2 x 6.8 x 4.0 cm hyperdense intramuscular collection within the superior medial thigh which likely represents a hematoma. Additionally there is mild soft tissue
stranding and edema within the superficial soft tissues which may represent superficial contusion.
3. Partially visualized collection within the popliteal fossa which likely represents the known complex Hubbard's cyst.
4. Total knee arthroplasty. There is a moderate joint effusion with internal complexity which may be secondary to synovitis or possible hemarthrosis.
Discharge Plan
-
Patient Disposition: Senior Care/SNF
Discharge Diagnosis/Procedures: Hematoma of left knee region; CVA, essential hypertension, hyperlipidemia, A-fib on Eliquis, left knee replacement, T-cell lymphoma, seizures, BPH, renal calculus, osteoarthritis, cervical disc disease
Condition: Fair
Diet: No restrictions
Activity: With assistance
Driving Restrictions: No driving
Bathing Restrictions: None
Referrals:
Thad Mehta DO [Family Provider, Family Practice]
Akash Ponce MD [Active, Orthopedics] - in one to two weeks
Kelsie Cruz MD [Active, Cardiology] - in one to two months
Additional Discharge Medication Instructions: Please continue Keflex (cephalexin until 04/12 evening). You are taking 500mg by mouth four times/day and are thus given 8 pills to complete the course.
Please continue your home meds as below.
You are also asked to follow-up with your primary care doctor, orthopedic surgeon, and cardiology as outpatient.
Prescriptions:
New
cephalexin 500 mg Capsule
500 mg PO QID 2 Days Qty: 8 0RF
Continued
atorvastatin 10 mg Tablet
10 mg PO DAILY
amlodipine 2.5 mg Tablet
2.5 mg PO QPM
PreserVision AREDS
1 tab PO BID
polyethylene glycol 3350 [Miralax] 17 gram Powder In Packet
17 g PO DAILY
docusate sodium 50 mg Capsule
50 mg PO DAILY
oxycodone 5 mg Tablet
5 mg PO Q6H PRN (Reason: pain)
Eliquis 5 mg Tablet
5 mg PO BID
Discharge Orders:
Discharge Patient (As Directed); Ordered 04/10/25
Ordered By: Maynor Arellano
Discharge Date and Time
Print Language: BAHRAINI
--- NOTE | 2025-04-10 16:20 | PTCARENOTE ---
Pt AAO x3, CHACON; OOB to chair/ambulates to BR with assist x1-2/walker, roger well. VSS. On room air- pulse ox 97%, no SOB noted. Abd large, soft, roger PO well. Voids clear balwinder urine in urinal. Lt knee incision GLENDY; sutures intact; LLE with +2
edema; keeping LLE elevated on pillow. Circ/neuro check to LLE WNL. Resting in bed at present; anticipating DC to [facility] today. Will continue to monitor.
[2025-04-10] MEDS: NORVASC 2.5 MG PO (17:08)
[2025-04-10 19:16] VITALS: BP 123/76
[2025-04-10] MEDS: ROXICODONE 5 MG PO (19:30)
== END 2025-04-10 19:49 | DRG 920 ==
LOC: 4 EAST ACU 18:58
PROVIDERS: Emergency Medicine; Nurse Practitioner Family; ADMITTING PHYSICIAN General Practice; ATTENDING PHYSICIAN Internal Medicine; CONSULT PHYSICIAN Orthopaedic Surgery; CONSULT PHYSICIAN Physical Medicine & Rehabilitation; EMERGENCY PHYSICIAN Emergency Medicine; FAMILY PHYSICIAN Family Medicine; OTHER PHYSICIAN Internal Medicine Cardiovascular Disease; OTHER PHYSICIAN Internal Medicine Infectious Disease
DX: M96.840 Postprocedural hematoma of a musculoskeletal structure following a musculoskeletal system procedure (principal); D62 Acute posthemorrhagic anemia; I48.19 Other persistent atrial fibrillation; D68.32 Hemorrhagic disorder due to extrinsic circulating anticoagulants; E22.2 Syndrome of inappropriate secretion of antidiuretic hormone; E78.00 Pure hypercholesterolemia, unspecified; D75.89 Other specified diseases of blood and blood-forming organs; I10 Essential (primary) hypertension; N40.0 Benign prostatic hyperplasia without lower urinary tract symptoms; Y83.1 Surgical operation with implant of artificial internal device as the cause of abnormal reaction of the patient, or of later complication, without mention of misadventure at the time of the procedure; Y92.9 Unspecified place or not applicable; Z96.653 Presence of artificial knee joint, bilateral; Z79.01 Long term (current) use of anticoagulants; Z86.73 Personal history of transient ischemic attack (TIA), and cerebral infarction without residual deficits; Z87.891 Personal history of nicotine dependence; Z87.442 Personal history of urinary calculi; Z85.72 Personal history of non-Hodgkin lymphomas; Z98.1 Arthrodesis status; Z79.899 Other long term (current) drug therapy; Z90.81 Acquired absence of spleen
CPT/HCPCS: 73564; 73706; 80048; 80053; 81003; 81015; 82607; 82746; 85014; 85018; 85025; 85027; 86850; 86900; 86901; 87040; 87086; 93971; 96374; 97163; 97167; 97530; 97535; 99285; Q9967

== ENCOUNTER → 2025-04-13 10:05 | Outpatient (REF) | payer OTHER, MEDICARE, SELFPAY ==
[2025-04-13 11:19] LABS: Hematocrit 27.0 % (39.0-52.0); Hemoglobin 8.5 g/dL (13.0-18.0); Mean Corp Hgb Conc. 31.5 g/dL (33.0-37.0); Mean Corpuscular Volume 98.5 fL (80.0-94.0); Platelet Count 716 10^3/uL (130-400); Red Cell Dist. Width 16.1 % (11.5-14.5)
[2025-04-13 11:38] LABS: Blood Urea Nitrogen 10 mg/dl (9-20); Calcium 8.0 mg/dl (8.4-10.2); Carbon Dioxide 26 mmol/L (22-30); Chloride 107 mmol/L (98-107); Glucose 88 mg/dl (70-99); Potassium 4.3 mmol/L (3.5-5.1); Sodium 136 mmol/L (135-145); eGFR > 60.00
== END ==
LOC: OLABP 10:05
PROVIDERS: ATTENDING PHYSICIAN Family Medicine
DX: D62 Acute posthemorrhagic anemia (principal)
CPT/HCPCS: 36415; 80048; 85027

== ENCOUNTER → 2025-04-21 10:31 | Outpatient (REF) | payer MEDICARE, OTHER, SELFPAY ==
[2025-04-21 12:14] LABS: Hematocrit 32.2 % (39.0-52.0); Hemoglobin 9.6 g/dL (13.0-18.0); Mean Corp Hgb Conc. 29.8 g/dL (33.0-37.0); Mean Corpuscular Volume 103.2 fL (80.0-94.0); Nucleated Red Blood Cells % 0 % (-); Platelet Count 598 10^3/uL (130-400); Red Cell Dist. Width 17.6 % (11.5-14.5)
== END ==
LOC: OLABP 10:31
PROVIDERS: ATTENDING PHYSICIAN Family Medicine
DX: I10 Essential (primary) hypertension (principal)
CPT/HCPCS: 36415; 85025

== ENCOUNTER 2025-04-27 21:04 | Emergency (ER) | payer MEDICARE, OTHER, SELFPAY ==
[2025-04-27 21:08] VITALS: BP 138/73
[2025-04-27 22:45] VITALS: BMI 26.0
[2025-04-27 22:48] VITALS: BP 125/82
[2025-04-27 23:00] VITALS: BP 133/79
--- NOTE | 2025-04-27 23:08 | ED.GENMED ---
History of Present Illness
<Vani Wagner, RECORDINGS LIBRARIAN - Last Filed: 04/28/25 01:23>
General
Chief Complaint: Musculo-Skeletal Complaint
Source: patient and family
Exam Limitations: none
Time Seen by Provider: 04/27/25 23:08
Nursing documentation reviewed up to this point in time: agreed with
History of Present Illness
History of Present Illness:
79-year-old male with history of TIA, sleep apnea with CPAP, HTN, HLD, BPH, kidney stones, T-cell lymphoma/MF, splenectomy 1964, left knee replacement 02/2025 following revision three weeks later, presents from [facility] with severe pain right arm.
He states it starts in the upper arm and radiates down to wrist, unable to move wrist without severe pain. Has bad shoulders and chronically limited ROM of arms at shoulders. No recollection of injury. Did receive Covid injection right arm 4 days
ago, pain started the next day and has worsened daily.
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 Swelling is noted in the right arm compared to left.
Denies fever/chills. Denies n/v/d/c.
Past History
<Vani Wagner, RECORDINGS LIBRARIAN - Last Filed: 04/28/25 01:23>
Past History
ED Past Medical History: Cancer (T-cell Lymphoma), HTN, Hypercholesterolemia, Seizures, Other (bph, Renal calculus, ) and Other (Osteoarthritis and cervical disc disease)
ED Past Surgical History: Orthopedic (Cervical discectomy with fusion C4-5, C5-6, C6-7,, Right total knee replacement, Carpal tunnel), Urological (Prostate surgery) and Other (Splenectomy)
Social History
Tobacco: Former smoker
Alcohol: Daily (Beer 1)
Drug: None
Personal:
Living: with family
Family History
Family History: Negative Diabetes, Hypertension, Early CAD, Asthma or Cancer
Review of Systems
<Vani Wagner, RECORDINGS LIBRARIAN - Last Filed: 04/28/25 01:23>
Review of Systems
Allergies reviewed?: Yes
All Other Systems: ROS reviewed and negative except as documented in HPI and ROS
Phy Exam
<Vani Wagner, RECORDINGS LIBRARIAN - Last Filed: 04/28/25 01:23>
Physical Exam
Physical Exam:
GENERAL: No acute distress. A&Ox3.
CONSTITUTIONAL: Afebrile.
EYES: clear, conjunctivae normal
ENMT: dry mucus membranes, Pharynx nl
RESPIRATORY: Regular respirations, nonlabored, lungs clear.
CARDIOVASCULAR: Regular rate and rhythm, no murmurs, no rubs.
GI: Soft, nontender, normal BS
MUSCULOSKELETAL: Base of right thumb swollen, red, warm, exquisitely tender. R arm with significant pain with any movement, +1 swollen compared to left arm. Screams out with any attempt to move arm. L knee with ecchymosis, swelling (known
hematoma), incision intact. with ease. Well perfused.
SKIN: Warm, dry, pink
PSYCH: Anxiousl mood and affect. Well kept, interactive and appropriate
NEUROLOGIC: Awake, alert and oriented. No focal neurological deficits
Course
<Vani Wagner, RECORDINGS LIBRARIAN - Last Filed: 04/28/25 01:23>
Orders/Labs/Results
Orders:
Orders
04/27/25 23:25
HYDROmorphone [Dilaudid] 1 mg IM NOW STA
04/27/25 23:29
HYDROmorphone [Dilaudid] 0.5 mg IV NOW STA
04/27/25 23:41
Diazepam [Valium] 5 mg PO NOW STA
04/27/25 23:46
CPK [Creatine Phosphokinase] Urgent
CRP [C-Reactive Protein] Urgent
Complete Blood Count/With Diff Urgent
Comprehensive Metabolic Panel Urgent
Sed Rate [Erythrocyte Sed Rate] Urgent
Uric Acid Urgent
Comment: ADD ON
04/28/25 00:55
US Periph Venous UPPER Ext RT Urgent
Comment:
Reason For Exam: rue pain
04/28/25 01:01
Dexamethasone Sod Phosphate [Decadron] 10 mg IV NOW STA
04/28/25 01:17
Add On- LAB Urgent
Tests Added?: uric acid
Abnormal Lab Results
04/27/25
23:46
WBC 14.3 H 10^3/uL
(4.8-10.8)
RBC 3.73 L 10^6/uL
(4.70-6.10)
Hgb 11.4 L g/dL
(13.0-18.0)
Hct 34.7 L %
(39.0-52.0)
MCHC 32.9 L g/dL
(33.0-37.0)
RDW 16.6 H %
(11.5-14.5)
Abs Immat Gran (auto) 0.1 H 10^3/uL
(0-0.05)
Absolute Neuts (auto) 12.1 H 10^3/uL
(1.4-6.5)
Absolute Lymphs (auto) 0.5 L 10^3/uL
(1.2-3.4)
Absolute Monos (auto) 1.7 H 10^3/uL
(0.1-0.6)
Neutrophils % 84.3 H %
(42.2-75.2)
Lymphocytes % 3.4 L %
(20.5-51.1)
Monocytes % 11.7 H %
(1.7-9.3)
ESR 94 H mm/hour
(0-20)
Sodium 131 L mmol/L
(135-145)
Glucose 114 H mg/dl
(70-99)
Total Bilirubin 3.7 H mg/dl
(0.2-1.3)
Alkaline Phosphatase 186 H U/L
(38-126)
Creatine Kinase < 20 L U/L
(55-170)
C-Reactive Protein 216.00 H mg/L
(0.0-10.00)
04/27/25 23:46
04/27/25 23:46
Vital Signs
Initial and Last Documented VS:
Initial Vital Signs
Pulse Resp BP Pulse Ox
106 18 138/73 99
04/27/25 21:08 04/27/25 21:08 04/27/25 21:08 04/27/25 21:08
Last Documented Vital Signs
Temp Pulse Resp BP Pulse Ox
98.1 F 106 18 133/79 96
04/27/25 21:11 04/27/25 21:08 04/27/25 21:08 04/27/25 23:00 04/28/25 00:39
Ricklt;Janette Polo PA-C - Last Filed: 04/28/25 01:50>
Orders/Labs/Results
Orders:
Orders
04/27/25 23:25
HYDROmorphone [Dilaudid] 1 mg IM NOW STA
04/27/25 23:29
HYDROmorphone [Dilaudid] 0.5 mg IV NOW STA
04/27/25 23:41
Diazepam [Valium] 5 mg PO NOW STA
04/27/25 23:46
CPK [Creatine Phosphokinase] Urgent
CRP [C-Reactive Protein] Urgent
Complete Blood Count/With Diff Urgent
Comprehensive Metabolic Panel Urgent
Sed Rate [Erythrocyte Sed Rate] Urgent
Uric Acid Urgent
Comment: ADD ON
04/28/25 00:55
US Periph Venous UPPER Ext RT Urgent
Comment:
Reason For Exam: rue pain
04/28/25 01:01
Dexamethasone Sod Phosphate [Decadron] 10 mg IV NOW STA
04/28/25 01:17
Add On- LAB Urgent
Tests Added?: uric acid
Abnormal Lab Results
04/27/25
23:46
WBC 14.3 H 10^3/uL
(4.8-10.8)
RBC 3.73 L 10^6/uL
(4.70-6.10)
Hgb 11.4 L g/dL
(13.0-18.0)
Hct 34.7 L %
(39.0-52.0)
MCHC 32.9 L g/dL
(33.0-37.0)
RDW 16.6 H %
(11.5-14.5)
Abs Immat Gran (auto) 0.1 H 10^3/uL
(0-0.05)
Absolute Neuts (auto) 12.1 H 10^3/uL
(1.4-6.5)
Absolute Lymphs (auto) 0.5 L 10^3/uL
(1.2-3.4)
Absolute Monos (auto) 1.7 H 10^3/uL
(0.1-0.6)
Neutrophils % 84.3 H %
(42.2-75.2)
Lymphocytes % 3.4 L %
(20.5-51.1)
Monocytes % 11.7 H %
(1.7-9.3)
ESR 94 H mm/hour
(0-20)
Sodium 131 L mmol/L
(135-145)
Glucose 114 H mg/dl
(70-99)
Total Bilirubin 3.7 H mg/dl
(0.2-1.3)
Alkaline Phosphatase 186 H U/L
(38-126)
Creatine Kinase < 20 L U/L
(55-170)
C-Reactive Protein 216.00 H mg/L
(0.0-10.00)
04/27/25 23:46
04/27/25 23:46
Vital Signs
Initial and Last Documented VS:
Initial Vital Signs
Pulse Resp BP Pulse Ox
106 18 138/73 99
04/27/25 21:08 04/27/25 21:08 04/27/25 21:08 04/27/25 21:08
Last Documented Vital Signs
Temp Pulse Resp BP Pulse Ox
98.1 F 106 18 133/79 96
04/27/25 21:11 04/27/25 21:08 04/27/25 21:08 04/27/25 23:00 04/28/25 00:39
<Vani Wagner RECORDINGS LIBRARIAN - Last Filed: 04/28/25 01:23>
MDM/Problems Addressed
Differential Diagnosis Includes:
Gout, osteoarthritis flare, Tendinitis, bursitis, cellulitis, DVT (not likely on Eliquis), dependent edema from lack of movement, rhabdomyolysis
MDM/Problems Addressed:
79-year-old male with history of TIA, sleep apnea with CPAP, HTN, HLD, BPH, kidney stones, T-cell lymphoma/MF, splenectomy 1964, left knee replacement 02/2025 following revision three weeks later, presents from [facility] with severe pain right arm.
He states it starts in the upper arm and radiates down to wrist, unable to move wrist without severe pain. Has bad shoulders and chronically limited ROM of arms at shoulders. No recollection of injury. Did receive Covid injection right arm 4 days
ago, pain started the next day and has worsened daily.
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 Swelling is noted in the right arm compared to left.
Denies fever/chills. Denies n/v/d/c.
Patient yelling out, with any minute movement of the right arm, he is very anxious, jumping and yelling with any palpation of any part of his body, he did have OxyContin 5 mg he is not sure when, prior to arrival so instead of giving him Dilaudid
now I will give him Valium 5 mg p.o. to hopefully help his anxiety and also relax his arm muscles so that the ultrasound can be done.
Chronic conditions affecting care include right knee replacement and recent revision due to infection. These conditions, along with notable behavior changes post-COVID vaccination and new musculoskeletal pain, were considered in the differential
diagnosis.
CBC: WBC 14.3 with left shift
CMP with no clinically significant abnormality. Total bilirubin 3.7, trending up. Per pt has gallstones and is scheduled for cholecystectomy after healing from knee surgery
CPK < 20
ESR 94
CRP: 216
US RUE: Neg for clot
The base of right thumb is most likely the cause of most of pain, it is red, swollen, exquisitely painful at MCP joint. The rest of the arm has chronically limited ROM and swelling most likely from dependent edema, lack of movement
Plan: Decadron here tonight, rx for Prednisone 40 mg daily x 3 days sent back to [facility] with him.
at bedside and all findings, plan discussed with her
Pt stable for discharge
<Vani Wagner RECORDINGS LIBRARIAN - Last Filed: 04/28/25 01:23>
*Pulse Oximetry
SaO2: 96
Oxygen Mode of Delivery: Room air
<Janette Polo PA-C - Last Filed: 04/28/25 01:50>
*Pulse Oximetry
Patient hypoxic: no
*Critical Care Note
Total Time (30-74mins, 75-104mins- exclusive of procedures): Not Applicable
<Janette Polo PA-C - Last Filed: 04/28/25 01:50>
Update Note
Update Note:
ultrasound negative of the upper extremity
ED Attending Note
<Vani Wagner NP - Last Filed: 04/28/25 01:23>
-
Portions of this chart may have been created with voice recognition software.� Occasional wrong word or��sound alike� substitutions may have occurred due to the inherent limitations of voice recognition software.
Discharge Plan
Departure
Patient Disposition: Jail/SNF
Date of Disposition: 04/28/25
Time of Disposition: 01:36
Patient with high blood pressure during this ER visit?: No
Condition: Fair
Discharge Problem:
Osteoarthritis
Instructions: Osteoarthritis, Gout - ED (DC)
Prescriptions:
New
prednisone 20 mg tablet
40 mg PO DAILY Qty: 6 0RF
No Action
atorvastatin 10 mg Tablet
10 mg PO DAILY
amlodipine 2.5 mg Tablet
2.5 mg PO QPM
PreserVision AREDS
1 tab PO BID
polyethylene glycol 3350 [Miralax] 17 gram Powder In Packet
17 g PO DAILY
docusate sodium 50 mg Capsule
50 mg PO DAILY
oxycodone 5 mg Tablet
5 mg PO Q6H PRN (Reason: pain)
Eliquis 5 mg Tablet
5 mg PO BID
cephalexin 500 mg Capsule
500 mg PO QID 2 Days Qty: 8 0RF
Referrals:
Eleazar Trevino MD [Non-Admitting Privileges, Orthopedics] - Call in 1-3 days for appt
Thad Mehta DO [Family Provider, Family Practice]
Activity Restrictions/Additional Instructions:
As we discussed, you are having a flare of arthritis at the base of your thumb
Your work up here shows nothing worrisome.
I gave Decadron 10 mg IV for inflammation. I sent a prescription for Prednisone 40 mg daily for 3 days back with you to [facility]
It takes a day or two for steroids to kick in so it will be painful until then
You may remove the splint in 2-4 days, when the area feels better.
Follow up with your orthopedic doctor at [facility], call tomorrow for appointment
I've provided you with information on gout, another type of arthritis this can be.
Interventions
Interventions:
*Risk Screen - Suicide Last Done: 04/27/25 21:08
*General Assessment Last Done: 04/27/25 22:49
*Neglect/Abuse Screening Last Done: 04/27/25 21:08
*ED COVID-19 Vaccine History Last Done: 04/27/25 22:49
*ED Influenza Vaccine History Last Done: 04/27/25 22:49
[facility] Risk Assessment Tool Last Done: 04/27/25 22:53
ED-Musculoskeletal Assessment Last Done: 04/27/25 22:49
Discharge Date and Time
Print Language: FINNISH
[2025-04-27] MEDS: VALIUM 5 MG PO (23:47)
[2025-04-27 23:55] LABS: Hematocrit 34.7 % (39.0-52.0); Hemoglobin 11.4 g/dL (13.0-18.0); Mean Corp Hgb Conc. 32.9 g/dL (33.0-37.0); Mean Corpuscular Volume 93.0 fL (80.0-94.0); Nucleated Red Blood Cells % 0 % (-); Platelet Count 378 10^3/uL (130-400); Red Cell Dist. Width 16.6 % (11.5-14.5)
[2025-04-28 00:19] LABS: ALT (SGPT) 21 U/L (0-50); AST (SGOT) 31 U/L (17-59); Albumin 3.5 g/dl (3.5-5.0); Alkaline Phosphatase 186 U/L (38-126); Blood Urea Nitrogen 20 mg/dl (9-20); Calcium 8.8 mg/dl (8.4-10.2); Carbon Dioxide 24 mmol/L (22-30); Chloride 100 mmol/L (98-107); Estimated Creatinine Clearance 91 ml/min; Glucose 114 mg/dl (70-99); Potassium 4.6 mmol/L (3.5-5.1); Sodium 131 mmol/L (135-145); Total Protein 7.5 g/dl (6.3-8.2); eGFR > 60.00
[2025-04-28 00:37] LABS: C-Reactive Protein 216.00 mg/L (0.0-10.00)
[2025-04-28] MEDS: DECADRON 10 MG IV (01:15)
[2025-04-28 01:49] LABS: Uric Acid 3.7 mg/dl (3.5-8.5)
[2025-04-28 02:00] VITALS: BP 112/68
== END 2025-04-28 03:44 ==
LOC: EMR 21:04
PROVIDERS: Registered Nurse; EMERGENCY PHYSICIAN Emergency Medicine; FAMILY PHYSICIAN Family Medicine
DX: M19.90 Unspecified osteoarthritis, unspecified site (principal); I10 Essential (primary) hypertension; E78.00 Pure hypercholesterolemia, unspecified; G47.30 Sleep apnea, unspecified; N40.0 Benign prostatic hyperplasia without lower urinary tract symptoms; M50.30 Other cervical disc degeneration, unspecified cervical region; K80.20 Calculus of gallbladder without cholecystitis without obstruction; Z85.72 Personal history of non-Hodgkin lymphomas; Z86.73 Personal history of transient ischemic attack (TIA), and cerebral infarction without residual deficits; Z87.891 Personal history of nicotine dependence; Z90.81 Acquired absence of spleen; Z96.653 Presence of artificial knee joint, bilateral
CPT/HCPCS: 99284; 96374; 80053; 82550; 84550; 85025; 85652; 86140; 93971

== ENCOUNTER 2025-05-20 12:44 | Outpatient (RCR) | payer MEDICARE, OTHER, SELFPAY | END 2025-05-20 23:59 | disposition home or self-care (01) | LOC: RPT 12:44 | PROVIDERS: ATTENDING PHYSICIAN Orthopaedic Surgery Sports Medicine; FAMILY PHYSICIAN Family Medicine | DX: Z47.1 Aftercare following joint replacement surgery (principal); Z73.6 Limitation of activities due to disability; R26.2 Difficulty in walking, not elsewhere classified; M62.81 Muscle weakness (generalized); R26.89 Other abnormalities of gait and mobility; M25.562 Pain in left knee; Z96.652 Presence of left artificial knee joint; I89.0 Lymphedema, not elsewhere classified | CPT/HCPCS: 97010; 97110; 97140; 97162; 97164; 97530 ==